=== PATIENT | male | born 1960 | race Caucasian/White ===

== ENCOUNTER 2016-04-13 06:30 | Inpatient (IN) | payer MEDICAID ==
[2016-04-13] MEDS ORDERED: ONDANSETRON 4 MG/2 ML VIAL IVP ONE (06:36)
[2016-04-13] MEDS ORDERED: NS 500 ML IV ONE (06:36)
--- NOTE | 2016-04-13 06:36 | EDPHY ---
H & P Source: Patient, EMS HPI/ROS: HPI CHIEF COMPLAINT: Chest pain/chest pressure HISTORY OF PRESENT ILLNESS: this patient very pleasant 55-year-old male significant past medical history for hypertension, and coronary artery bypass graft, tells me that he had bypass in 2011 3 vessel, he states that around 11: 00 p.m. he developed left-sided chest pressure like something sitting on his chest, states that this occurred all night long he was unable to get any relief he states it was not positional. Denies associated nausea vomiting diaphoresis or shortness of breath with this. He tells me the pain persisted all night long. Nonradiating. He decided to call 911 as the [facility] Upon arrival to the emergency room he did receive 325 mg of aspirin by EMS however no nitroglycerin. Patient tells me does have a heart history with coronary artery bypass however does not take any medications and states that he does not take any daily medications at all for his heart over the past few years. Denies taking daily aspirin, does not take any hypertension medication or cholesterol medication he does tell me that he takes Neurontin intermittently.Patient denies sharp stabbing pain or pleuritic pain or shortness of breath. Denies hemoptysis. Currently he tells me the pain is 6 out of 10 left-sided pressure-like. Patient tells me just moved [facility] 3 months ago, has not had a cardiac evaluation since his bypass surgery in 2011. Past Medical History:Hypertension, coronary artery disease Past Surgical History: CABG, hernia repair Social History: Daily use of tobacco, denies alcohol, daily use of marijuana, homeless Family History: noncontributory ROS REVIEW OF SYSTEMS: A comprehensive 10 point review of systems is otherwise negative aside from elements mentioned in the history of present illness. Exam Constitutional no acute distress, triage nursing summary reviewed, vital signs reviewed, awake/alert. Eyes normal conjunctivae and sclera, EOMI, PERRLA. HENT normal inspection, atraumatic, moist mucus membranes, no epistaxis, neck supple/ no meningismus, no raccoon eyes. Respiratory clear to auscultation bilaterally, normal breath sounds, no respiratory distress, no wheezing. Cardiovascular chest wall midline vertical incision consistent with previous bypass surgery, rate normal, regular rhythm, no murmur, no edema, distal pulses normal. Gastrointestinal soft, non-tender, no rebound, no guarding, normal bowel sounds, no distension, no pulsatile mass. Genitourinary no CVA tenderness. Musculoskeletal no midline vertebral tenderness, full range of motion, no calf swelling, no tenderness of extremities, no meningismus, good pulses, neurovascularly intact. Skin pink, warm, & dry, no rash, skin atraumatic. Neurologic awake, alert and oriented x 3, AAOx3, moves all 4 extremities equally, motor intact, sensory intact, CN II-XII intact, normal cerebellar, normal vision, normal speech. Psychiatric normal mood/affect. Heme/Lymph/Immune no lymphadenopathy. Differential diagnosis includes but is not limited to: ACS, atypical chest pain , pneumothorax, pneumonia, pulmonary embolism, aortic dissection, congestive heart failure, tumor, musculoskeletal pain, esophageal pain, GERD, peptic ulcer disease, pancreatitis Medical Decision Making: This patient will have an IV established be placed on full parking patroller, patient already receive full-dose aspirin I have ordered him nitroglycerin to see if this improves his 6/10 left-sided chest pressure. Patient will have an EKG, blood work including cardiac marker, electrolytes, CBC. Patient will be gently hydrated with IV fluids. He will have a chest x- ray. Most likely this patient will need to be admitted for ACS rule out given his history. Re-evaluation: 0640: EKG has been performed. Patient is on full parking patroller. Patient is receiving nitroglycerin at this time. EKG interpretation by me on record in [employer] system. Impression time of EKG 6:33 a.m., this is sinus rhythm rate of 73 there are atrial premature complexes present, there is evidence of an inferior infarct that is old with Q- waves in lead 2, 3, AVF, it is noted in his precordial specifically V4 V5 V6 is flattening of the T-wave. Otherwise unremarkable do not appreciate ST elevation or significant ST depression or significant T-wave abnormality. No old EKG to compare this to. 0649: patient was given 4 mg IV morphine, 4 mg IV Zofran, nitroglycerin. His pain was 6/10 and now 0/10. He is resting comfortably. Blood pressure was noted to be 170 systolic upon arrival it is currently now 120s systolic. ED x-ray chest one view: Scarring versus early pneumonia or right midlung, otherwise unremarkable, no cardiomegaly. Signed over at 7am shift change to Dr. Umanzor Critical Care: Total Critical Care Time Spent Managing this Patient: This 60 minutes Minutes. This time was spent Exclusively with this patient. This Care was exclusive of procedures. The Organ System/life at risk was cardiac This Patient was in Critical Condition because non STEMI (Elijah Chong) Constitutional: Initial Vital Signs Temperature (C) 36.4 C 04/13/16 06:33 Heart Rate 76 04/13/16 06:33 Respiratory Rate 18 04/13/16 06:33 Blood Pressure 175/111 H 04/13/16 06:33 O2 Sat (%) 96 04/13/16 06:33 O2 Delivery Mode Nasal Cannula O2 (L/minute) 2 Allergies/Adverse Reactions: No Known Allergies Allergy (Unverified 04/13/16 06:39) Home Medications: Medication Instructions Recorded Baclofen [Baclofen 20 mg (*)] 20 mg PO QID 04/13/16 Gabapentin [Neurontin] 600 mg PO QID 04/13/16 Aspirin EC [Aspirin EC 325 mg (*)] 325 mg PO DAILY #60 tab 04/14/16 Atorvastatin Calcium [Lipitor 20 20 mg PO DAILY #30 tab 04/14/16 mg (*)] Clopidogrel Bisulfate [Plavix (*)] 75 mg PO DAILY #30 tab 04/14/16 Lisinopril [Zestril 10 mg (*)] 10 mg PO DAILY #90 tab 04/14/16 Metoprolol Succinate Xr [Toprol Xl 25 mg PO DAILY #90 tab 04/14/16 25 mg (*)] Nicotine [Nicoderm Cq 21 mg (*)] 21 mg TD DAILY #7 patch 04/14/16 Nitroglycerin [Nitrostat 0.4 mg 0.4 mg SL ONCE PRN #30 btl 04/14/16 (*)] traMADol [Ultram 50 mg (*)] 50 mg PO Q6HRS PRN #30 tab 04/14/16 Medical Decision Making Other Provider: 0700: I assumed care of this patient from Dr. Chong at shift change. Patient's troponin markedly elevated at 6.430. 0743: Consulted with cardiology. Dr. Jose Antonio Leonard will see the patient in the hospital. Course was discussed with the hospitalist service, Dr. Chávez. Patient will be admitted to the PCU. On re-evaluation at 7:45 a.m.: The patient reports to me that his pain is currently 3/10. He tells me he has been having intermittent episodes of this pain for weeks. Patient received nitroglycerin sublingually. Nitro drip was started. Patient's chest x-ray is concerning for infiltrate versus scarring in the right middle lobe. Lateral chest x-ray was ordered to further evaluate. I will discuss with radiology. 0816: Consulted with Dr. Leonard, cardiology, concerning the patient's persistent pain. Patient was taken to the clinical lab technologist by Dr. Jose Antonio Leonard. ( Madelyn Umanzor) - Data Points Laboratory Results: Laboratory Results 04/13/16 06:32 04/13/16 06:32 Medications Given: Discontinued Medications Aspirin Buffered (Aspirin Ec) 325 mg PO DAILY [facility] Stop: 10/11/16 08:59 Last Admin: 04/14/16 09:05 Dose: 325 mg Atorvastatin Calcium (Lipitor) 20 mg PO DAILY [facility] Stop: 10/11/16 08:59 Last Admin: 04/14/16 09:05 Dose: 20 mg Baclofen (Baclofen) 20 mg PO QID [facility] Stop: 10/10/16 11:59 Last Admin: 04/14/16 06:26 Dose: 20 mg Clopidogrel Bisulfate (Plavix) 600 mg PO ONCE ONE Stop: 04/13/16 10:09 Last Admin: 04/13/16 11:09 Dose: Not Given Clopidogrel Bisulfate (Plavix) 75 mg PO DAILY [facility] Stop: 10/11/16 08:59 Last Admin: 04/14/16 09:05 Dose: 75 mg Famotidine (Pepcid) 20 mg PO BID [facility] Stop: 10/10/16 20:59 Last Admin: 04/14/16 09:04 Dose: 20 mg Gabapentin (Neurontin) 600 mg PO QID [facility] Stop: 10/10/16 11:59 Last Admin: 04/14/16 06:26 Dose: 600 mg Sodium Chloride (Ns) 500 mls @ 0 mls/hr IV ONCE ONE PRN Reason: As Directed Stop: 04/13/16 06:37 Last Admin: 04/13/16 06:45 Dose: 500 mls Nitroglycerin/Dextrose (Nitroglycerin 200 Mcg/Ml (Premix)) 250 mls @ 0 mls/hr IV EDNOW ONE; Titrate PRN Reason: Protocol Stop: 04/13/16 07:57 Last Admin: 04/13/16 08:17 Dose: 250 mls Lisinopril (Zestril) 2.5 mg PO DAILY [facility] Stop: 10/11/16 08:59 Last Admin: 04/14/16 09:04 Dose: 2.5 mg Lisinopril (Zestril) 2.5 mg PO ONCE ONE Stop: 04/13/16 14:01 Last Admin: 04/13/16 14:39 Dose: 2.5 mg Lisinopril (Zestril) 10 mg PO DAILY [facility] Stop: 10/11/16 09:59 Last Admin: 04/14/16 10:02 Dose: 10 mg Lorazepam (Ativan Injection) 1 mg IVP Q1HR PRN PRN Reason: Anxiety, Unable to Take PO Stop: 10/10/16 10:07 Last Admin: 04/13/16 17:14 Dose: 1 mg Metoprolol Succinate (Toprol Xl) 25 mg PO DAILY [facility] Stop: 10/10/16 10:29 Last Admin: 04/14/16 09:04 Dose: 25 mg Morphine Sulfate (Morphine) 4 mg IVP EDNOW ONE Stop: 04/13/16 06:37 Last Admin: 04/13/16 06:45 Dose: 4 mg Nicotine (Nicoderm Cq) 21 mg TD DAILY [facility] Stop: 10/10/16 10:29 Last Admin: 04/14/16 09:05 Dose: 21 mg Nitroglycerin (Nitrostat) 0.4 mg SL Q5M PRN PRN Reason: Chest Pain Stop: 04/13/16 06:47 Last Admin: 04/13/16 08:00 Dose: 0.4 mg Nitroglycerin (Nitrostat) 0.4 mg SL ONCE ONE Stop: 04/13/16 07:57 Last Admin: 04/13/16 08:01 Dose: 0.4 mg Ondansetron HCl (Zofran) 4 mg IVP EDNOW ONE Stop: 04/13/16 06:37 Last Admin: 04/13/16 06:45 Dose: 4 mg Oxycodone/Acetaminophen (Percocet 5/325) 1 - 2 tab PO Q4HRS PRN PRN Reason: Pain, Severe Able to Take PO Stop: 04/23/16 10:07 Last Admin: 04/14/16 09:04 Dose: 1 tab Pneumococcal Polyvalent Vaccine (Pneumovax 23) 0.5 ml IM .ONCE ONE Stop: 04/14/16 06:42 Last Admin: 04/14/16 06:53 Dose: 0.5 ml Tramadol HCl (Ultram) 50 mg PO Q6HRS PRN PRN Reason: Pain, Moderate Able to Take PO Stop: 10/10/16 10:43 Last Admin: 04/13/16 12:00 Dose: 50 mg Departure - Departure Disposition: To OP Cath/Surgery Clinical Impression: Elevated troponin Chest pain Qualifiers: Chest pain type: unspecified Qualifier Code: (R07.9) Chest pain, unspecified Condition: Serious
--- NOTE | 2016-04-13 06:43 | CPEKG ---
Heart Rate: 73 RR Interval: 822 P-R Interval: 132 QRSD Interval: 106 QT Interval: 420 QTC Interval: 463 P [place]: 36 QRS [place]: 17 T Wave [place]: 74 EKG Severity - ABNORMAL ECG - EKG Impression: SINUS RHYTHM EKG Impression: MULTIPLE ATRIAL PREMATURE COMPLEXES EKG Impression: INFERIOR INFARCT, OLD Electronically Signed By: Madelyn Umanzor 13-Apr-2016 18:13:12
[2016-04-13 06:44] LABS: % IMMATURE GRANULYOCYTES 0.5 % (0.0-1.1); ABSOLUTE IMMATURE GRANULOCYTES 0.07 10^3/uL (0.00-0.10); ADD DIFF? NO; ADD MORPH? NO; ADD SCAN? NO; ATYPICAL LYMPHOCYTE FLAG 30 (0-99); FRAGMENT RBC FLAG 0 (0-99); HEMATOCRIT 45.2 % (40.0-51.0); HEMOGLOBIN 15.5 g/dL (13.7-17.5); LEFT SHIFT FLG 0 (0-99); LIPEMIA HEMOLYSIS FLAG 90 (0-99); MEAN CELL HEMOGLOBIN 29.6 pg (27.9-34.1); MEAN CELL HEMOGLOBIN CONCENTR. 34.3 g/dL (32.4-36.7); MEAN CELL VOLUME 86.3 fL (81.5-99.8); PLATELET CLUMPS FLAG 0 (0-99); PLATELET COUNT 240 10^3/uL (150-400); RED BLOOD CELL COUNT 5.24 10^6/uL (4.40-6.38); RED CELL DISTRIBUTION WIDTH 14.4 % (11.5-15.2)
[2016-04-13] MEDS: NITROGLYCERIN 0.4 MG BTL SL PRN ×2 (06:45→08:00)
[2016-04-13 06:55] LABS: APTT 29.8 SEC (23.0-38.0); INR 1.15 (0.83-1.16); PROTIME(PATIENT) 14.6 SEC (12.0-15.0)
[2016-04-13 07:10] LABS: ALANINE AMINOTRANSFERASE 34 IU/L (21-72); ALKALINE PHOSPHATASE 95 IU/L (38-126); ANION GAP 14 mEq/L (8-16); ASPARTATE AMINOTRANSFERASE 91 IU/L (17-59); BILIRUBIN,TOTAL 0.8 mg/dL (0.1-1.4); BILIRUBIN-CONJUGATED 0.4 mg/dL (0.0-0.5); BILIRUBIN-UNCONJUGATED 0.4 mg/dL (0.0-1.1); CALCIUM 9.6 mg/dL (8.5-10.4); CARBON DIOXIDE 25 mEq/l (22-31); CHLORIDE 104 mEq/L (97-110); CREATININE 0.5 mg/dL (0.7-1.3); GLOMERULAR FILTRATION RATE > 60; GLUCOSE 133 mg/dL (70-100); SODIUM 143 mEq/L (134-144); TOTAL PROTEIN 7.6 g/dL (6.3-8.2)
[2016-04-13 07:22] LABS: CK-MB INTERPRETATION POSITIVE (NEGATIVE)
[2016-04-13] MEDS ORDERED: NITROGLYCERIN 0.4 MG BTL SL ONE ×2 (07:56)
[2016-04-13] MEDS ORDERED: NITROGLYCERIN/DEXTROSE 250 ML IV ONE (07:56)
[2016-04-13] MEDS ORDERED: LIDOCAINE 1% 30 ML SDV ONE (08:50)
[2016-04-13] MEDS ORDERED: MIDAZOLAM 2 MG/2 ML VIAL ONE ×3 (08:51→09:44)
[2016-04-13] MEDS ORDERED: fentaNYL 100 MCG/2 ML INJ ONE (08:51)
[2016-04-13] MEDS ORDERED: IOPAMIDOL (ISOVUE 370) 100 ML BTL IV ONE ×2 (08:51→09:39)
--- NOTE | 2016-04-13 08:57 | DX ---
Chest, One View Lateral April 13, 2016 at 0745 Hours History: Dyspnea, chest pain. Findings: Lateral view of the chest demonstrates alveolar opacity in the anterior segment of the righ t upper lobe consistent with pneumonia. Slight hyperinflation of the lungs. Median sternotomy wires a nd mediastinal clips. Impression: Right upper lobe anterior segment pneumonia.
--- NOTE | 2016-04-13 08:58 | DX ---
Portable Chest April 13, 2016 at 0648 Hours History: Chest pain. Findings: Alveolar opacity in the right upper lobe anterior segment likely representing pneumonia. In creased interstitial markings in both lungs. Mild cardiomegaly. Median sternotomy wires. Impressions: 1. Right upper lobe pneumonia. 2. Recommend follow-up until clear.
[2016-04-13] MEDS ORDERED: NITROGLYCERIN 1,500 MCG/15 ML VIAL MISC ONE (09:39)
[2016-04-13] MEDS ORDERED: HEPARIN 10,000 UNIT/10 ML MDV ONE (09:41)
[2016-04-13] MEDS ORDERED: BIVALIRUDIN 250 MG/5 ML VIAL IV ONE (09:41)
[2016-04-13] MEDS ORDERED: CLOPIDOGREL BISULFATE 75 MG TAB ONE (10:05)
[2016-04-13] MEDS ORDERED: HYDROCODONE/APAP 5/325 TAB PO PRN (10:08)
[2016-04-13] MEDS ORDERED: TEMAZEPAM 15 MG CAP PO PRN (10:08)
[2016-04-13] MEDS ORDERED: ONDANSETRON 4 MG/2 ML VIAL IVP PRN (10:08)
[2016-04-13] MEDS ORDERED: CLOPIDOGREL BISULFATE 75 MG TAB PO ONE (10:08)
[2016-04-13] MEDS ORDERED: NITROGLYCERIN 0.4 MG BTL SL PRN (10:08)
[2016-04-13] MEDS ORDERED: ATROPINE SULFATE 1 MG/10 ML SYR IVP PRN (10:08)
[2016-04-13] MEDS ORDERED: NS 1,000 ML IV SCH (10:15)
--- NOTE | 2016-04-13 10:22 | GHP ---
[f rep st] HISTORY AND PHYSICAL DATE OF ADMISSION: 04/13/2016 The patient is a 55-year-old male admitted to the hospital with a non-Q-wave myocardial infarction. CHIEF COMPLAINT: Chest pain. HISTORY OF PRESENT ILLNESS: The patient is 55 years old. He has known severe coronary artery diseas e. He underwent coronary artery bypass grafting in 2011. At around 11 o'clock last night he awoke w ith substernal chest pressure as a band around his chest. It was associated with intense diaphoresis and shortness of breath. Pain persisted. He arrived in the emergency department at 6:30 this morni ng. His initial EKG did not show acute changes. His troponin came back at 6, and I was called to co nsider him for diagnostic angiogram. Despite medical therapy, he had ongoing 6/10 discomfort and on my exam was having 3/10 pain. This has been going on since 11 o'clock in the morning. It is a subst ernal pressure. It has been constant. It does not radiate to the arm or jaw. It is associated with shortness of breath, nausea, vomiting, diaphoresis. REVIEW OF SYSTEMS: Negative for weight loss, weight gain. He is homeless, [facility] His eye review of systems is negative for change in vision. Review of systems for ENT revea led no sore throat. He has a history of tonsillectomy. Cardiovascular review of systems is negative for PND, orthopnea, syncope and near syncope. Review of systems for respiratory include chronic cou gh with decreased exercise tolerance with shortness of breath. Review of systems for GI is positive for mild nausea but no vomiting. No diarrhea or constipation. Review of systems for is negative for dysuria or hematuria. Review of systems for musculoskeletal is positive for chronic back pain se condary to an injury. He takes tramadol and baclofen for this. Review of systems for skin is negati ve for rash. Review of systems for neuro is negative for focal muscle weakness, focal numbness or ti ngling. Review of systems for endocrinology is negative for history of diabetes. Review of systems for immunologic is negative for adenopathy. Review of systems for psychiatry is positive for chronic marijuana use. No alcohol. ALLERGIES: Review of systems for allergies, none. PAST SURGICAL HISTORY: Significant for his coronary artery bypass grafting as described above, 4-ves nenita. He has a history of tonsillectomy. PAST MEDICAL HISTORY: Significant for longstanding COPD related to tobacco abuse. CARDIAC RISK FACTORS: Negative for diabetes, negative for hypertension. He has positive hyperlipid emia, positive smoking. Negative family history. FAMILY HISTORY: Negative for premature coronary disease. SOCIAL HISTORY: Again, no alcohol. Positive marijuana daily. He is homeless. He is accompanied by his family. PHYSICAL EXAMINATION: GENERAL: This is a disheveled male sitting comfortably in bed. VITAL SIGNS: Initial vital signs revealed a blood pressure of 134/68. His current heart rate is 64, respiratory r ate is 21 and unlabored. Oxygen saturation was 96% on 2 L. EYES: Examination revealed conjunctival injection without icterus. His pupils were equal. ENT: Revealed no significant exudate within the oropharynx. His dentition is poor. NECK: Examination revealed no thyromegaly. There were no mass es. RESPIRATORY: Auscultation reveals mild decreased breath sounds with normal effort. There were coarse rhonchi that cleared with coughing. He is hyperexpanded. CARDIOVASCULAR: Examination a regu lar rate with extra systoles. His PMI is located mid clavicular line, 5th intercostal space. His st ernotomy is well healed. He had no peripheral edema. Carotids were +2 and brisk. Femoral arteries were +2 and brisk. Pedal pulses were +1. GI: His abdomen is distended. He is tympanitic to percus maria c. There was no tenderness to palpation. There was no rebound, no guarding. There was no hepato megaly. : Exam was deferred. LYMPH: There was no supraclavicular or axillary adenopathy. MUSCU LOSKELETAL: Palpation revealed grossly normal muscle tone with symmetry. There was gross normal fun ction. SKIN: Examination revealed no significant rash. NEUROLOGIC: He is alert and oriented with normal mood and affect. The patient is moving extremities equally. No decrease in sensation bilater ally. PROBLEM LIST: 1. Acute chest pain syndrome characterized by abnormal troponin. 2. Known coronary artery disease with coronary artery bypass grafting. 3. Tobacco abuse. 4. Chronic marijuana use. 5. COPD. LABORATORY DATA: The patient's serum sodium is 143 with a potassium of 4. His chloride is 104 with a bicarbonate of 25. BUN is 8 with a creatinine of 0.5. His AST is elevated at 91. His CPK is 638 with a positive MB fraction. Troponin is 6.43. His BNP is elevated at 1390. His albumin is 4. His lipase is 23. His INR is 1.15. Testing available includes an EKG from 6:36 this morning. EKG reveals sinus rhythm at 73, PACs, infe rior Q-waves are noted. No acute ST-T changes are noted. Chest x-ray from 7:49 reveals sternal wires consistent with prior bypass grafting. He has hyperexpan maria c. There is prominence of the pulmonary artery with a focal infiltrate in the right middle lobe. The aorta is tortuous. FINAL DIAGNOSIS: Acute non-Q-wave myocardial infarction characterized by ongoing substernal pain, el evation of CPK and troponin consistent with injury. EKG does not suggest focal location without ST-T changes. However, the patient is clearly at high risk with known coronary artery bypass grafting. RECOMMENDATIONS: 1. Urgent angiography with an eye towards intervention. The patient is currently on no cardiac medi cines for risk reduction, in particular no antiplatelet agents, no statins, no beta ruslan, no GAMAL i nhibitor. This is due to his social situation of being homeless. Interestingly, he is able to affor d his Flexeril and tramadol for chronic pain. 2. Other problems to be addressed this hospitalization, include a focal infiltrate on chest x-ray. Whether this represents pneumonia versus a malignancy is uncertain. Considerations for CT scanning t o further define this post intervention. 3. Tobacco abuse. 4. Overall cardiovascular risk. The patient's risk is intermediate to high. Will await results of angiography. Risks and benefits of this approach were discussed with the patient. He is well aware, having had this done previously. This was discussed with his family. /[id number]/MODL
--- NOTE | 2016-04-13 10:23 | PDDXCAT ---
Diagnostic Cath Note - . Date: 04/13/16 Full Stack Developer: Horacio Indication: CCC Class III and IV angina on medical treatment, other (NONQ MA) - Procedure Access: right groin Procedure: left heart catheterization, coronary angiography, left ventriculogram , vein graft injection, DUMONT injection, other (Aortagram) - Materials Left Heart Cath size: 6F Left Heart Cath materials: standard multipack (JL4, JR4, pigtail) - Findings-Left Heart Catheterization LM: Unobstructed LAD: 100% occluded after septal perforated LCX: 1st obtuse margin branch widely patent. Occlusion with thrombus 2nd obtuse marginal branch likely culprit vessel RCA: diffusely diseased with occlusion at the posterolateral branch rSVG: widely patent to the distal posterolateral branch DUMONT: widely patent to the LAD EDP: 10 mm of mercury LVEF: 40% with inferoapical akinesis Complications: none Estimated blood loss: <50ml Closure method: Angioseal Assessment: Non-Q-wave myocardial infarction with occlusion of the obtuse marginal branch. Severe multivessel coronary artery disease with patent mammary artery to the LAD, patent vein graft to the distal posterolateral branch. Moderate reduction in LV systolic function with inferior apical akinesis and normal filling pressures Plan: PCI Intervention: after reviewing diagnostic angiograms it was elected to proceed with emergency PCI. Patient was anticoagulated with heparin. Therapeutic ACT was confirmed. Using a 6 English JL4 guiding catheter left main coronary was selectively intubated. Using a 0.014 luge wire the obtuse marginal stenosis was crossed in the wire placed in the distal vessel. Pre dilatation of the occlusion was performed using a 2 mm balloon x3. Was elected to proceed with stenting. In light of the patient's transient status inability dip purchase medications of his lytes proceed with bare metal stenting. 2.25 x 20 mm bare metal stent was placed across the stenosis and deployed using a single inflation. Patient was administered intracoronary nitroglycerin. Final orthogonal angiogram revealed step-up step-down with DIALLO grade 3 flow. At this point left ventricular angiography was performed. Aortogram was performed revealing a single vein graft to the distal posterolateral branch. ACT was confirmed. Sheath was removed using Angio-Seal the patient is taken to the ICU for continued care. Final diagnosis: Non-Q-wave myocardial infarction with occlusion of the obtuse marginal branch. Reduced LV systolic function. Severe multivessel coronary artery disease. Ongoing tobacco abuse. Noncompliance with medications due to finances. Recommendations: Dual antiplatelet therapy for at least 2 weeks. Resume statin therapy Tyron inhibitor and low-dose beta-ruslan. Evaluation for lung mass. Smoking cessation with nicotine patch. Social work consultation. Patient Problems: Problems Problem Status Diagnosed Chest pain Acute Elevated troponin Acute Non-Q wave myocardial infarction Acute
[2016-04-13] MEDS ORDERED: traMADol 50 MG TAB PO PRN (10:44)
[2016-04-13] MEDS ORDERED: NON-FORMULARY NEW DRUG (Gabapentin [Neurontin] 600 MG) PO SCH (12:00)
[2016-04-13] MEDS: METOPROLOL SUCCINATE XR 25 MG TAB PO SCH (12:01)
[2016-04-13] MEDS: NICOTINE 21 MG/24 HR PATCH TD SCH (12:01)
[2016-04-13] MEDS: BACLOFEN 20 MG TAB PO SCH ×3 (13:20→20:33)
[2016-04-13] MEDS: GABAPENTIN 300 MG CAP PO SCH ×3 (13:20→20:33)
[2016-04-13] MEDS ORDERED: LISINOPRIL 2.5 MG TAB PO ONE (14:00)
[2016-04-13] MEDS: LORazepam 2 MG/ML INJ IVP PRN ×2 (14:37→17:14)
[2016-04-13 15:07] LABS: CHOLESTEROL 157 mg/dL (140-220); CHOLESTEROL/HDL RATIO 4.49 RATIO (1.00-4.97); HIGH DENSITY LIPOPROTEIN 35 mg/dL (40-65); LDL/HDL RATIO 2.71 RATIO (1.00-3.64); LOW DENSITY LIPOPROTEIN 95 mg/dL (80-100); NON-HIGH DENSITY LIPOPROTEIN 122 mg/dL (90-129); TRIGLYCERIDE 138 mg/dL (40-150); VERY LOW DENSITY LIPOPROTEINS 27 mg/dL (8-25)
[2016-04-13 15:28] LABS: CK-MB INTERPRETATION POSITIVE (NEGATIVE)
[2016-04-13 18:00] LABS: CK-MB INTERPRETATION POSITIVE (NEGATIVE)
[2016-04-13] MEDS: FAMOTIDINE 20 MG TAB PO SCH (20:33)
[2016-04-13 21:39] LABS: CK-MB INTERPRETATION POSITIVE (NEGATIVE)
[2016-04-14] MEDS: OXYCODONE/APAP 5/325 TAB PO PRN ×2 (03:17→09:04)
[2016-04-14 03:59] LABS: ALBUMIN 3.7 g/dL (3.5-5.0); ANION GAP 10 mEq/L (8-16); ASPARTATE AMINOTRANSFERASE 93 IU/L (17-59); BILIRUBIN,TOTAL 0.8 mg/dL (0.1-1.4); CALCIUM 9.1 mg/dL (8.5-10.4); CARBON DIOXIDE 27 mEq/l (22-31); CHLORIDE 105 mEq/L (97-110); CREATININE 0.5 mg/dL (0.7-1.3); GLOMERULAR FILTRATION RATE > 60; GLUCOSE 107 mg/dL (70-100); LACTATE DEHYDROGENASE 901 IU/L (313-618); POTASSIUM 4.1 mEq/L (3.5-5.2); SODIUM 142 mEq/L (134-144)
[2016-04-14 04:06] LABS: % IMMATURE GRANULYOCYTES 0.5 % (0.0-1.1); ABSOLUTE IMMATURE GRANULOCYTES 0.06 10^3/uL (0.00-0.10); ADD DIFF? NO; ADD MORPH? NO; ADD SCAN? NO; ATYPICAL LYMPHOCYTE FLAG 40 (0-99); FRAGMENT RBC FLAG 0 (0-99); HEMOGLOBIN 15.3 g/dL (13.7-17.5); LEFT SHIFT FLG 0 (0-99); LIPEMIA HEMOLYSIS FLAG 80 (0-99); MEAN CELL HEMOGLOBIN 29.4 pg (27.9-34.1); MEAN CELL HEMOGLOBIN CONCENTR. 33.3 g/dL (32.4-36.7); MEAN CELL VOLUME 88.5 fL (81.5-99.8); MEAN PLATELET VOLUME 10.5 fL (8.7-11.7); PLATELET CLUMPS FLAG 0 (0-99); PLATELET COUNT 207 10^3/uL (150-400); RED CELL DISTRIBUTION WIDTH 14.6 % (11.5-15.2)
[2016-04-14 04:23] LABS: CK-MB INTERPRETATION POSITIVE (NEGATIVE)
[2016-04-14] MEDS: GABAPENTIN 300 MG CAP PO SCH (06:26)
[2016-04-14] MEDS: BACLOFEN 20 MG TAB PO SCH (06:26)
[2016-04-14] MEDS ORDERED: PNEUMOCOCCAL 0.5ML VACCINE VIAL IM ONE (06:41)
--- NOTE | 2016-04-14 06:45 | CPEKG ---
Heart Rate: 62 RR Interval: 968 P-R Interval: 136 QRSD Interval: 108 QT Interval: 456 QTC Interval: 463 P [place]: 35 QRS [place]: 19 T Wave [place]: 95 EKG Severity - ABNORMAL ECG - EKG Impression: SINUS RHYTHM EKG Impression: INFERIOR INFARCT, OLD EKG Impression: LATERAL LEADS ARE ALSO INVOLVED Preliminary Awaiting MD Review
[2016-04-14] MEDS ORDERED: ATORVASTATIN CALCIUM 20 MG TAB PO SCH (09:00)
[2016-04-14] MEDS ORDERED: LISINOPRIL 2.5 MG TAB PO SCH (09:00)
[2016-04-14] MEDS ORDERED: ASPIRIN EC 325 MG TAB PO SCH (09:00)
[2016-04-14] MEDS ORDERED: CLOPIDOGREL BISULFATE 75 MG TAB PO SCH (09:00)
[2016-04-14] MEDS: METOPROLOL SUCCINATE XR 25 MG TAB PO SCH (09:04)
[2016-04-14] MEDS: FAMOTIDINE 20 MG TAB PO SCH (09:04)
[2016-04-14] MEDS: NICOTINE 21 MG/24 HR PATCH TD SCH (09:05)
[2016-04-14 09:06] VITALS: PULSE 79
[2016-04-14 09:16] VITALS: RESP 20; TEMP 97.7; O2SAT 97
[2016-04-14] MEDS ORDERED: LISINOPRIL 10 MG TAB PO SCH (10:00)
[2016-04-14 10:02] VITALS: BP 162/94
--- NOTE | 2016-04-14 10:08 | PDDCSUM ---
Discharge Summary Discharge Summary: Admit: 04/13/17 Discharge 04/14/16 Admission Dx: NONQMI Discharge DX: NONQMI, CAD, S/P CABG,S/P PCI, Hyperlipidemia,Hypertension, Tobacco abuse, COPD, Abnormal chest xray, chronic marijuana use Followup: [facility]. [address] chest for abnormal chest XRAY: Concern for malignancy Follow up [facility] s/p SC Follow up Cardiac rehabilitation. Meds: See form 17 Procedures: Cardiac cath with PCI of the circumflex/Om. Placement of bare-metal stent/ ( patent Wheeler to the LAD and patent SVG to the RCA.EF 40%) Echocardiogram. Hospital Course: Patient was admitted from the ER with 8 hours of substernal chest pain. ECG was inconclusive. Initial troponin was elevated and the patient was taken to the tutorial laboratory supervisor with on going pain. He was found to have a culprit thrombotic stenosis of the OM and underwent stenting with a bare metal stent. He was observed overnight. He had no evidence of heart failure.. EF is 40%. He was restless overnight. He was found to have an abnormal chest xray with consolidation of the right middle lobe. . He understands that this maybe a malignancy and will follow this up as outpatient. He was up this morning and wanting discharge. Telemetry has not revealed any arrhythmias. His exam is unremarkable. Metabolic assessment is stable. He is states an ability to comply with his medications. He has had smoking cessation discussed. He is discharged with a nicotine patch and Rx. 160/99 64 Chest decreased breath sounds but clear,\Cardiac regular without gallop puncture site healing well. CPKs decreasing. Stable H/H Discharge home with follow up
--- NOTE | 2016-04-14 10:45 | ECHO ---
[id number] + + [address] : : [place] [address] : : [phone] + + Adult Echocardiographic Report + ------+ :Name: RUBINA GHOSH Trellreshma Date: 04/14/2016 07:48 AM : : Hospital Admission Number: [id number] Locatio n: 254: :: 1960 Gender: Male Height: 75 in : :Age: 55 yrs Race: WH Weight: 218 lb : :Reason For Study: Follow up post NC : : BSA: 2.3 meters 2 : :History: Recent stent : + ------+ MMode/2D Measurements & Calculations LVIDd: 4.9 cmEDV(Teich): 114.5 ml LVLd ap4: 9.2 cm SV(MOD-sp4): 89.0 ml EDV(MOD-sp4): 143.0 ml LVLs ap4: 8.3 cm ESV(MOD-sp4): 54.0 ml EF(MOD-sp4): 62.2 % Normal Measurement Values: + + :LVIDd (3.5-5.7cm) IVSd (0.6-1.1cm) LVPWd (0.6-1.1cm) Aortic Root (2.0-3.7cm)Left Atrium (1.5-4.0cm): :LV Vol(d) (76-115ml) LV Vol(s) (29-48ml) Ejec Fraction (50-65%)PV Tomas (0.6- 1.2m/s) TV Tomas (0.4-1.0m/s) : :MV E Tomas (0.8-1.0m/s)MV A Tomas (0.3-1.0m/s)LVOT Tomas (0.7-1.2m/s) Asc Ao Tomas ( 0.9-1.8m/s) : + + Doppler Measurements & Calculations MV E max tomas: 77.5 cm/sec Ao V2 max: 135.7 cm/sec MV A max tomas: 59.7 cm/sec Ao max P.4 mmHg MV E/A: 1.3 Left Ventricle The left ventricle is normal in size and function. There is normal left ventricular wall thickness. Left ventricular systolic function is normal. There is Doppler evidence for diastolic dysfunction. Ejection Fraction = 65- 70%. No regional wall motion abnormalities noted. Right Ventricle The right ventricle is normal in size and function. Atria The left atrium is mildly dilated. Right atrial size is normal. The interatrial septum is intact with no evidence for an atrial septal defect. Mitral Valve The mitral valve is normal in structure and function. There is no evidence of mitral valve prolapse. There is no mitral valve stenosis. There is mild to moderate mitral regurgitation. Tricuspid Valve Normal tricuspid valve. There is trace tricuspid regurgitation. Aortic Valve The aortic valve opens well. There is no aortic stenosis. There is no aortic insufficiency. Pulmonic Valve The pulmonic valve is not well visualized. There is no pulmonic valvular regurgitation. Great Vessels The aortic root is normal size. Pericardium/Pleural There is no pericardial effusion. Conclusion A complete two-dimensional transthoracic echocardiogram was performed (2D, M-mode, Doppler and color flow Doppler). The left ventricle is normal in size and function. Left ventricular systolic function is normal. There is Doppler evidence for diastolic dysfunction. Ejection Fraction = 65-70%. The left atrium is mildly dilated. There is mild to moderate mitral regurgitation. There is trace tricuspid regurgitation. There is a infero-apical akinetic segment. Final Reading Physician: Sylvain Suarez signed on 04/14/2016 10:43 AM Ordering Physician: SHIRIN POSADA Performed By: Yamila Youngblood, MORA
== END 2016-04-14 10:30 | disposition home or self-care (01) | DRG 249 ==
LOC: F2N 10:36
PROVIDERS: ADMIT Internal Medicine; ATTEND Internal Medicine
PROC: 02703DZ Dilation of Coronary Artery, One Artery with Intraluminal Device, Percutaneous Approach (ICD-10-PCS; principal; 2016-04-13)
PROC: B2151ZZ Fluoroscopy of Left Heart using Low Osmolar Contrast (ICD-10-PCS; principal; 2016-04-13)
PROC: 4A023N7 Measurement of Cardiac Sampling and Pressure, Left Heart, Percutaneous Approach (ICD-10-PCS; principal; 2016-04-13)
PROC: B2111ZZ Fluoroscopy of Multiple Coronary Arteries using Low Osmolar Contrast (ICD-10-PCS; principal; 2016-04-13)
DX: I21.4 Non-ST elevation (NSTEMI) myocardial infarction (principal); I25.10 Atherosclerotic heart disease of native coronary artery without angina pectoris; Z95.1 Presence of aortocoronary bypass graft; E78.5 Hyperlipidemia, unspecified; I10 Essential (primary) hypertension; F17.210 Nicotine dependence, cigarettes, uncomplicated; J44.9 Chronic obstructive pulmonary disease, unspecified; R91.8 Other nonspecific abnormal finding of lung field; F12.90 Cannabis use, unspecified, uncomplicated; Z59.0 Homelessness; Z23 Encounter for immunization
CPT/HCPCS: 96365; 96366; C1725; C1769; C1876; C1887; G0009; G0477; J0583; J1644; J2250; J2405; J3010; Q9967

== ENCOUNTER 2016-04-28 12:26 | Observation (INO) | payer MEDICAID ==
--- NOTE | 2016-04-28 12:34 | EDPHY ---
H & P Time Seen by Provider: 04/28/16 12:30 HPI/ROS: CHIEF COMPLAINT: chest pain HISTORY OF PRESENT ILLNESS: Patient is a 55-year-old male with a history of coronary artery disease and recent cardiac stenting on 04/14/[address] Jose Antonio Leonard. Patient presents emergency department with 30 minutes of left-sided chest pain. This is just like the pain before. Patient states it is moderate and worsening. It radiates into his left arm. EMS treated the patient with nitroglycerin wound an aspirin which did not improve his symptoms. He reports mild shortness of breath. He has mild nausea with no vomiting. No abdominal pain. No recent fevers or chills. No cough. Patient has been taking his medications regularly but does not know which medications he is taking. REVIEW OF SYSTEMS: My complete review of systems is negative except as mentioned in the HPI. Past Medical/Surgical History: Includes coronary artery disease, hyperlipidemia, hypertension, COPD Past surgical history: Includes a CABG, PCI Social history: The patient smokes tobacco. Patient uses marijuana. He does not drink alcohol. Smoking Status: Current every day smoker Physical Exam: Vitals noted GENERAL: No acute distress, alert. HEENT: Eyes normal to inspection, normal pharynx, no signs of dehydration. Poor dentition. NECK: No thyromegaly, no lymphadenopathy, supple. RESPIRATORY: Clear to auscultation bilaterally, no rales, rhonchi or wheezing. CVS: Regular rate and rhythm, no rubs, murmurs, or gallops. Patient has a midline surgical scar ABDOMEN: Soft, nontender, nondistended, no organomegaly. BACK: Normal to inspection, no CVA tenderness. SKIN: Normal color, no rash, warm, dry. No pallor. EXTREMITIES: No pedal edema, no calf tenderness, no Homans sign or cords, no joint swelling. NEURO/PSYCH: Alert and oriented x3, normal mood and affect, normal motor sensory exam. Constitutional: Initial Vital Signs Temperature (C) 36.5 C 04/28/16 12:36 Heart Rate 64 04/28/16 12:36 Respiratory Rate 23 H 04/28/16 12:36 Blood Pressure 101/77 04/28/16 12:36 O2 Sat (%) 98 04/28/16 12:36 O2 Delivery Mode Room Air O2 (L/minute) 2 Allergies/Adverse Reactions: No Known Allergies Allergy (Verified 04/28/16 12:35) Home Medications: Medication Instructions Recorded Baclofen [Baclofen 20 mg (*)] 20 mg PO QID 04/13/16 Gabapentin [Neurontin] 600 mg PO QID 04/13/16 Aspirin EC [Aspirin EC 325 mg (*)] 325 mg PO DAILY #60 tab 04/14/16 Atorvastatin Calcium [Lipitor 20 20 mg PO DAILY #30 tab 04/14/16 mg (*)] Clopidogrel Bisulfate [Plavix (*)] 75 mg PO DAILY #30 tab 04/14/16 Lisinopril [Zestril 10 mg (*)] 10 mg PO DAILY #90 tab 04/14/16 Metoprolol Succinate Xr [Toprol Xl 25 mg PO DAILY #90 tab 04/14/16 25 mg (*)] Nicotine [Nicoderm Cq 21 mg (*)] 21 mg TD DAILY #7 patch 04/14/16 Nitroglycerin [Nitrostat 0.4 mg 0.4 mg SL ONCE PRN #30 btl 04/14/16 (*)] traMADol [Ultram 50 mg (*)] 50 mg PO Q6HRS PRN #30 tab 04/14/16 Medical Decision Making ED Course/Re-evaluation: In the emergency department I met EMS on arrival. I took report from the comber operator. I discussed the plan with the patient. I answered all his questions. Laboratory studies, EKG and chest x-ray were ordered. Of note, EMS gave the patient nitroglycerin and aspirin. IV the patient's medical record from his admission on 04/13/2016. I also reviewed the note from Dr. Jose Antonio Leonard from his stent placement. EKG shows normal sinus rhythm, normal rate, normal axis, nonspecific interventricular conduction delay. Patient has Q-waves in 2, 3 and AVF. There are no ST or T-wave abnormalities. VPC present. Patient was given Zofran for nausea. 1325: I discussed the case with the hospitalist service. Based on the patient' s history and previous cardiac stent the patient will be admitted for further observation. Patient's initial troponin was negative. However, this is a 30- 40 minute troponin. His initial EKG did not show ST elevation CA. Differential Diagnosis: My differential includes but is not limited to ACS, acute CA, pulmonary embolus , aortic aneurysm, dissection, pericarditis, myocarditis - Data Points Laboratory Results: Laboratory Results 04/28/16 12:00 04/28/16 12:00 04/28/16 12:00 WBC 10.39 H 10^3/uL (3.80-9.50) RBC 5.16 10^6/uL (4.40-6.38) Hgb 15.3 g/dL (13.7-17.5) Hct 45.3 % (40.0-51.0) MCV 87.8 fL (81.5-99.8) MCH 29.7 pg (27.9-34.1) MCHC 33.8 g/dL (32.4-36.7) RDW 14.9 % (11.5-15.2) Plt Count 225 10^3/uL (150-400) MPV 11.2 fL (8.7-11.7) Neut % (Auto) 61.9 % (39.3-74.2) Lymph % (Auto) 29.4 % (15.0-45.0) [place] % (Auto) 6.0 % (4.5-13.0) Eos % (Auto) 1.6 % (0.6-7.6) Baso % (Auto) 0.6 % (0.3-1.7) Nucleat RBC Rel Count 0.0 % (0.0-0.2) Absolute Neuts (auto) 6.44 10^3/uL (1.70-6.50) Absolute Lymphs (auto) 3.05 H 10^3/uL (1.00-3.00) Absolute Monos (auto) 0.62 10^3/uL (0.30-0.80) Absolute Eos (auto) 0.17 10^3/uL (0.03-0.40) Absolute Basos (auto) 0.06 10^3/uL (0.02-0.10) Absolute Nucleated RBC 0.00 10^3/uL (0-0.01) Immature Gran % 0.5 % (0.0-1.1) Immature Gran # 0.05 10^3/uL (0.00-0.10) PT 13.3 SEC (12.0-15.0) INR 1.02 (0.83-1.16) APTT 26.7 SEC (23.0-38.0) Sodium 143 mEq/L (134-144) Potassium 4.4 mEq/L (3.5-5.2) Chloride 104 mEq/L (97-110) Carbon Dioxide 24 mEq/l (22-31) Anion Gap 15 mEq/L (8-16) BUN 12 mg/dL (7-23) Creatinine 0.6 L mg/dL (0.7-1.3) Estimated GFR > 60 Glucose 131 H mg/dL (70-100) Calcium 10.0 mg/dL (8.5-10.4) Troponin I 0.012 ng/mL (0-0.034) NT-Pro-B Natriuret Pep 609 H pg/mL (0-125) Medications Given: Discontinued Medications Morphine Sulfate (Morphine) 4 mg IVP EDNOW ONE Stop: 04/28/16 12:36 Last Admin: 04/28/16 13:11 Dose: 4 mg Ondansetron HCl (Zofran) 4 mg IVP EDNOW ONE Stop: 04/28/16 12:36 Last Admin: 04/28/16 13:12 Dose: 4 mg Departure - Departure Disposition: [facility] Inpatient Acute Clinical Impression: Chest pain Qualifiers: Chest pain type: precordial chest pain Qualifier Code: (R07.2) Precordial pain Condition: Good Referrals: NONE *PRIMARY CARE P,. [Primary Care Provider] - As per Instructions
[2016-04-28] MEDS ORDERED: ONDANSETRON 4 MG/2 ML VIAL IVP ONE (12:35)
--- NOTE | 2016-04-28 12:36 | CPEKG ---
Heart Rate: 64 RR Interval: 938 P-R Interval: 128 QRSD Interval: 114 QT Interval: 456 QTC Interval: 471 P [place]: 37 QRS [place]: 20 T Wave [place]: 96 EKG Severity - ABNORMAL ECG - EKG Impression: SINUS RHYTHM EKG Impression: VENTRICULAR PREMATURE COMPLEX EKG Impression: NONSPECIFIC INTRAVENTRICULAR CONDUCTION DELAY EKG Impression: INFERIOR INFARCT, OLD Electronically Signed By: Eulalia Colin 28-Apr-2016 15:11:20
[2016-04-28 12:41] LABS: % IMMATURE GRANULYOCYTES 0.5 % (0.0-1.1); ABSOLUTE IMMATURE GRANULOCYTES 0.05 10^3/uL (0.00-0.10); ADD DIFF? NO; ADD MORPH? NO; ADD SCAN? NO; ATYPICAL LYMPHOCYTE FLAG 70 (0-99); FRAGMENT RBC FLAG 0 (0-99); HEMATOCRIT 45.3 % (40.0-51.0); HEMOGLOBIN 15.3 g/dL (13.7-17.5); LEFT SHIFT FLG 0 (0-99); LIPEMIA HEMOLYSIS FLAG 90 (0-99); MEAN CELL HEMOGLOBIN 29.7 pg (27.9-34.1); MEAN CELL HEMOGLOBIN CONCENTR. 33.8 g/dL (32.4-36.7); MEAN CELL VOLUME 87.8 fL (81.5-99.8); MEAN PLATELET VOLUME 11.2 fL (8.7-11.7); PLATELET CLUMPS FLAG 0 (0-99); PLATELET COUNT 225 10^3/uL (150-400); RED BLOOD CELL COUNT 5.16 10^6/uL (4.40-6.38); RED CELL DISTRIBUTION WIDTH 14.9 % (11.5-15.2)
[2016-04-28 12:49] LABS: ANION GAP 15 mEq/L (8-16); CARBON DIOXIDE 24 mEq/l (22-31); CHLORIDE 104 mEq/L (97-110); CREATININE 0.6 mg/dL (0.7-1.3); GLOMERULAR FILTRATION RATE > 60; GLUCOSE 131 mg/dL (70-100); POTASSIUM 4.4 mEq/L (3.5-5.2); SODIUM 143 mEq/L (134-144)
[2016-04-28 12:50] LABS: APTT 26.7 SEC (23.0-38.0); INR 1.02 (0.83-1.16); PROTIME(PATIENT) 13.3 SEC (12.0-15.0)
[2016-04-28 13:01] LABS: TROPONIN I 0.012 ng/mL (0-0.034)
--- NOTE | 2016-04-28 13:49 | DX ---
Portable AP Upright Chest April 28, 2016 at 12:52 p.m. Clinical History: 55-year-old male with ongoing chest pain. Comparison Study: Chest radiography, dated April 13, 2016. Findings: Again noted are median sternotomy wires and mediastinal surgical clips, consistent with a p rior CABG. The cardiac size is normal. There is some tortuosity of the aorta. There is diffuse peribr onchial thickening with areas of linear scarring in the lateral left midlung, unchanged from before. There is some pleural calcification associated with the left hemidiaphragm, and there is trace blunti ng of the left costophrenic angle, likely reflecting some pleural scarring. Since the previous study, there has been resolution of a previously noted anterior right upper lobe pneumonia. There is no pne umothorax. Impression: 1. Sequela of prior CABG. 2. 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 3. Diffuse peribronchial thickening which is nonspecific and could be related to prior chronic tobacc o use, although a superimposed viral interstitial pneumonitis cannot be excluded.
[2016-04-28] MEDS ORDERED: ONDANSETRON DISINTEGRATING 4 MG TAB PO PRN (14:34)
[2016-04-28] MEDS ORDERED: NITROGLYCERIN 0.4 MG BTL SL PRN (14:34)
[2016-04-28] MEDS ORDERED: KETOROLAC 30 MG/1 ML SDV IVP ONE (14:39)
--- NOTE | 2016-04-28 15:06 | GHP ---
[f rep st] HISTORY AND PHYSICAL DATE OF ADMISSION: 04/28/2016 CHIEF COMPLAINT: Chest pain. HPI: This is a 55-year-old male with known coronary artery disease who underwent 3-vessel CABG in 02 04, as well as PCI and bare metal stent placement in March [address] Leonard, who presents t o the [facility] today with chest pain. At 11:30 a.m. this morning, the patient was sitting playing a video game on his telephone when he dev eloped severe 9/10 left-sided chest pain. The pain was described as a pressure like a horse was sitt ing on his chest and also sharp pain that radiated down his arm. This pain was very similar to the s ymptoms he experienced when he had his last heart attack in March. Patient was given nitroglycerin, which did not help. Currently he denies any arm pain, but continues to have mild to moderate chest discomfort. His chest discomfort is associated with some diaphoresis and nausea. His pain is better with sitting forward and is worse with lying flat. He says he is co mpliant with his aspirin and Plavix. PAST MEDICAL HISTORY: Coronary artery disease as described in the HPI, hypertension, tobacco abuse. PAST SURGICAL HISTORY: 1. Tonsillectomy. 2. Three-vessel CABG in 2011. HOME MEDICATIONS: Reviewed, refer to [employer] for details. ALLERGIES: No known drug allergies. SOCIAL HISTORY: [facility] is and [facility]. He is a long-time smoker a nd has cut down to 8 cigarettes per day. He drinks alcohol. He denies any illicit drug use. FAMILY HISTORY: Significant for coronary artery disease in his grandparents. REVIEW OF SYSTEMS: Comprehensive 10-point review of systems was done and is negative, except for as mentioned in the HPI. The patient reports significant weight loss over the past year. He says his a ppetite has been very poor and he always feels full. PHYSICAL EXAM: VITAL SIGNS: Blood pressure 98/60, pulse 66, respiratory rate 16, O2 sat 98% on 2 L, temperature afebrile. GENERAL: No acute distress. HEAD: Normocephalic, atraumatic. EYES: PERRL A. Sclerae anicteric. MOUTH: Moist mucous membranes. NECK: Supple. No lymphadenopathy. CARDIOV ASCULAR: S1, S2. No JVD. No lower extremity edema. PULMONARY: Lungs are clear. No wheezes, rale s, or rhonchi. ABDOMEN: Soft, nontender, nondistended. No guarding or rebound tenderness. Normoac tive bowel sounds. EXTREMITIES: No clubbing or cyanosis. NEURO: Cranial nerves 2-12 grossly intac t. No focal motor or sensory deficits. SKIN: Clear. No rashes. DIAGNOSTICS: WBC is 10.39, hemoglobin 15.3, hematocrit 45.3, platelets 225. Sodium 143, potassium 4. 4, chloride 104, CO2 was 24, BUN 12, creatinine 0.6, glucose 131. Troponin was negative. BNP was 60 9. Chest x-ray shows an area of pleural parenchymal scarring and left hemothorax similar to a study done in March 2016. There is also some left hemidiaphragmatic calcification with diffuse peribronc hial thickening. EKG, which I visualized and personally interpreted, shows sinus rhythm, rate 64 beats per minute, wit h some small nonpathologic Q waves in 2, 3, and aVF. His EKG does show some possible ST elevation in V2 and V3 with ST depression in V4 and V5 that was not present on the EKG done on April 14, 2016. ASSESSMENT AND PLAN: This is a 55-year-old male with known coronary artery disease, who underwent ba re metal stenting on 04/13/2016 presenting with: 1. Chest pain concerning for acute coronary syndrome versus pericarditis. Plan: Patient will be pl aced on observation. Will cycle troponins. Will obtain a STAT echocardiogram. Will also consult Ca rdiology given his EKG changes. We will also trial NSAIDs and obtain inflammatory markers with next blood draw. 2. Reported early satiety and weight loss. Plan: Recommend outpatient workup with his primary care providers at [facility]. /[id number]/MODL
[2016-04-28 15:58] LABS: SEDIMENTATION RATE 14 MM/HR (0-20)
[2016-04-28] MEDS: NICOTINE 7 MG/24 HR PATCH TD SCH (20:03)
[2016-04-29] MEDS: NICOTINE 7 MG/24 HR PATCH TD SCH (08:36)
--- NOTE | 2016-04-29 08:55 | CPEKG ---
Heart Rate: 66 RR Interval: 909 P-R Interval: 128 QRSD Interval: 106 QT Interval: 448 QTC Interval: 470 P [place]: 42 QRS [place]: 45 T Wave [place]: 104 EKG Severity - ABNORMAL ECG - EKG Impression: SINUS RHYTHM EKG Impression: INFERIOR INFARCT, OLD EKG Impression: LATERAL LEADS ARE ALSO INVOLVED Electronically Signed By: Arnaldo Rizvi 30-Apr-2016 17:23:32
--- NOTE | 2016-04-29 09:17 | ECHO ---
[id number] [id number] + + [address] : : [place] [address] : : [phone] + Adult Echocardiographic Report + ------+ :Name: RUBINA GHOSH Trellreshma Date: 04/29/2016 08:01 AM : : Hospital Admission Number: [id number] Locatio n: 144: :: 1960 Gender: Male Height: 75 in : :Age: 55 yrs Race: WH Weight: 218 lb : :Reason For Study: Eval for wall motion abnormalities : : BSA: 2.3 meters 2 : + ------+ MMode/2D Measurements & Calculations LVIDd: 5.7 cm EDV(Teich): Ao root diam: LVLd ap4: 9.5 cm 160.5 ml 3.5 cm EDV(MOD-sp4): LA dimension: 136.0 ml 5.3 cm LVLs ap4: 8.4 cm ESV(MOD-sp4): 53.0 ml EF(MOD-sp4): 61.0 % SV(MOD-sp4): 83.0 ml Normal Measurement Values: + + :LVIDd (3.5-5.7cm) IVSd (0.6-1.1cm) LVPWd (0.6-1.1cm) Aortic Root (2.0-3.7cm)Left Atrium (1.5-4.0cm): :LV Vol(d) (76-115ml) LV Vol(s) (29-48ml) Ejec Fraction (50-65%)PV Tomas (0.6- 1.2m/s) TV Tomas (0.4-1.0m/s) : :MV E Tomas (0.8-1.0m/s)MV A Tomas (0.3-1.0m/s)LVOT Tomas (0.7-1.2m/s) Asc Ao Tomas ( 0.9-1.8m/s) : + + Doppler Measurements & Calculations MV E max tomas: 85.9 cm/sec Ao mean P.9 mmHg MV A max tomas: 61.7 cm/sec Ao V2 mean: 107.8 cm/sec MV E/A: 1.4 Ao V2 VTI: 31.9 cm Left Ventricle The left ventricle is mildly dilated. There is normal left ventricular wall thickness. There is Doppler evidence for diastolic dysfunction. EF estimate is 55-60%. LV inferior/apical septal santos are akinetic as noted on previous study of 04/14/16. Right Ventricle The right ventricle is normal in size and function. Atria The left atrium is mildly dilated. Right atrial size is normal. The interatrial septum is intact with no evidence for an atrial septal defect. Mitral Valve The mitral valve is normal in structure and function. There is no evidence of mitral valve prolapse. There is no mitral valve stenosis. There is mild to moderate mitral regurgitation. Tricuspid Valve Normal tricuspid valve. Aortic Valve The aortic valve opens well. There is no aortic stenosis. There is no aortic insufficiency. Pulmonic Valve The pulmonic valve is not well visualized. There is no pulmonic valvular regurgitation. Great Vessels The aortic root is normal size. Pericardium/Pleural There is no pericardial effusion. Conclusion A complete two-dimensional transthoracic echocardiogram was performed (2D, M-mode, Doppler and color flow Doppler). The left ventricle is mildly dilated. There is Doppler evidence for diastolic dysfunction. EF estimate is 55-60%. LV inferior/apical septal santos are akinetic as noted on previous study of 04/14/16. The left atrium is mildly dilated. There is mild to moderate mitral regurgitation. There is no pericardial effusion. Final Reading Physician: Sylvain Hudson signed on 04/29/2016 09:15 AM Ordering Physician: Brigido Hayes Performed By: Yamila Youngblood RDCS
[2016-04-29] MEDS ORDERED: ISOSORBIDE MONONITRATE 30 MG TAB.SR PO SCH (10:30)
[2016-04-29] MEDS ORDERED: ASPIRIN EC 81 MG TAB PO SCH (10:30)
--- NOTE | 2016-04-29 11:29 | GCON ---
[f rep st] CONSULTATION CARDIOLOGY CONSULTATION DATE OF CONSULTATION: 04/29/2016 REASON FOR CONSULTATION: We were asked by Dr. Hayes of the Hospital Medicine Service to evaluate the patient for his chest pain. HISTORY OF PRESENT ILLNESS: The patient is a 55-year-old male with known coronary artery disease status post CABG in 2011. He reports this was done in [place]. He presented on 04/13/2016 with severe substernal chest discomfort and was found to have an elevated troponin up to 6. At that time, he was taken to the cardiac catheterization laboratory and found to have thrombotic occlusion of a 2nd obtuse marginal branch which was treated with PCI with a bare metal stent at that time. His other coronary vasculature showed patent DUMONT to LAD, patent vein graft to distal posterolateral branch, with an EF of 40% and inferoapical akinesis. His peak troponin was 29. A followup echo showed normalization of EF to 65-70% with a persistent inferoapical akinetic wall motion abnormality. Other past medical history includes hypertension, ongoing tobacco abuse, and dyslipidemia. He presented to the emergency department with chest discomfort that started at 11:30 on 04/28/2016. He described severe 9/10 chest discomfort radiating into his left arm. This has been somewhat positional. He also notes associated shortness of breath that has been a long-standing issue, given his history of smoking. He denies any PND orthopnea or peripheral edema. Through the course of this hospitalization, he is found to have a negative EKG and negative enzymes. Echo is stable with an inferoapical wall motion abnormality and EF of 65-70%. REVIEW OF SYSTEMS: As per HPI. A complete 10-point review of systems was obtained and is negative except for what is dictated. PAST SURGICAL HISTORY: 1. Four-vessel CABG in 2011. 2. Tonsillectomy. PAST MEDICAL HISTORY: 1. Longstanding COPD. 2. CAD. 3. Dyslipidemia. 4. Hypertension. FAMILY HISTORY: Negative for premature coronary artery disease. SOCIAL HISTORY: Patient is homeless and resides at the retirement. He smokes cigarettes daily. No alcohol is reported. PHYSICAL EXAM: VITAL SIGNS: BP of 141/77, heart rate 77, respirations 20, O2 saturation of 98% on room air, temperature of 97.2 degrees Fahrenheit. GENERAL : He is a pleasant male. HEENT: Eyes are ABNER. NECK: Supple with no carotid bruits auscultated. HEART: Regular rate and rhythm with no rubs, gallops, or murmurs. LUNGS: Clear to auscultation bilaterally. ABDOMEN: Soft , nontender, normoactive bowel sounds. SKIN: Warm and dry without edema present. PSYCH: Normal mood and affect for given situation. NEURO: No there are no focal deficits detected. LABORATORY DATA: Troponins have been 0.012, then 0.018, and then less than 0.012. BMP with sodium 143, potassium 4.4, chloride 104, CO2 24, BUN 12, creatinine 0.6 , glucose of 131. CBC with WBC 10.39, hemoglobin 15.3, hematocrit 45.3, platelet count 225. A 12-lead ECG personally interpreted demonstrates sinus rhythm with inferior Q- waves, one PVC, diffuse ST-T wave abnormalities. On 04/29/2016: EKG demonstrates sinus rhythm with inferior Q-waves and ST-T wave abnormalities diffusely. On 04/28/2016: Echo demonstrates a mildly dilated left ventricle with EF of 55- 60% and LV inferoapical and septal santos akinetic, unchanged from previous study , mild to moderate MR and no pericardial effusion. 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 IMPRESSION AND PLAN: The patient is a 55-year-old male with known severe coronary artery disease. 1. Coronary artery disease with recent non-ST elevation myocardial infarction. He has negative troponins and EKGs have not shown any evidence of an acute coronary syndrome at this point. He is medically managed with metoprolol and lisinopril, Plavix and atorvastatin. Will add aspirin, as this does not appear on his medication list. Additionally, he will be started on antianginal therapy with isosorbide mononitrate. He will be followed up in clinic. If he has persistent chest pains, we would consider repeat angiography versus stress testing. 2. Chest pain syndrome. He has negative troponins and at this point, again, we will just pursue medical therapy. 3. Tobacco abuse. He is counseled on cessation. He is refer to [facility]. A phone number was given. 4. Hypertension. Blood pressure is mildly elevated this morning, but otherwise has been well controlled. 5. Dyslipidemia. His last LDL was measured on 04/13/2016 and was 95. We will continue to follow this in an outpatient setting. 6. Concern for malignancy. The patient was counseled on this and we are awaiting further recommendations from the Hospitalist service regarding further workup. /[id number]/MODL MTDD
[2016-04-29 12:10] VITALS: BP 138/81; PULSE 68; RESP 18; TEMP 97; O2SAT 96
--- NOTE | 2016-04-29 12:33 | GDS ---
[f rep st] DISCHARGE SUMMARY KNOWN ACUTE DIAGNOSES ON THIS ADMISSION: 1. Chest pain, probably noncardiac in origin, no evidence of cardiac ischemia by normal troponins. 2. Chest pain syndrome. 3. Tobacco abuse. 4. Hypertension. 5. Dyslipidemia. 6. Abnormal chest x-ray, possibly representing asbestos exposure with possibility of malignancy, Pul monary referral suggested. CONSULTATIONS: Cardiology. PROCEDURES: None. HOSPITAL COURSE: A 55-year-old male, who is status post a CABG in 2011 and underwent a bare metal st ent placement to the second obtuse marginal branch at this facility in April 2016. He presented wi th chest pain. He was found to have a normal troponin without elevation. BNP was slightly high at 6 09. Echocardiogram showed hypokinesis in the inferoapical septal wall, which was present on a previo us study with an EF of 55-60% and evidence of diastolic dysfunction. The echo was not changed from h is previous study. Because he most recently had an NFTEMI, a nuclear scan would not be an effective diagnostic procedure. Cardiology consult felt that with the normal troponins and unchanged echocardi ogram and the resolution of the gentleman's pain that he could be followed as an outpatient and medic ally managed. His nitrates were thus increased to long-acting nitrates along with short-acting nitra krista. Aspirin was added to his antiplatelet therapy. Blood pressure was well controlled during the h ospitalization. Regarding the chest x-ray abnormalities, which may be consistent with asbestosis, this should be foll owed as an outpatient with a referral to Pulmonology. The gentleman has agreed to the referral. DISCHARGE MEDICATIONS: ASA 81 mg a day, Imdur 30 mg daily, Lipitor 20 mg daily, baclofen 20 mg q.i. d., Plavix 75 mg daily, gabapentin 600 mg q.i.d., [place] 10/325 mg tablets 1 q.i.d. p.r.n. pain, miranda nopril 10 mg daily, Toprol-XL 25 mg daily, nicotine patch 21 mg daily, nitroglycerin 0.4 mg sublingu al for acute chest pain. PLAN: Kristinman will see Dr. Leonard in 2 weeks for reassessment of his chest pain syndrome and as to whether any further cardiac stratification should be done. He has also been referred to Dr. Rl Sanchez for Pulmonology and the evaluation of his abnormal chest x-ray. This referral can occur with in the next month. This discharge required 40 minutes greater than 50% to college and career counselor and coordinate care. /[id number]/MODL
== END 2016-04-29 12:51 | disposition home or self-care (01) ==
LOC: EDUNIT# → F1N 14:00
PROVIDERS: ADMIT Family Medicine; ATTEND Internal Medicine Pulmonary Disease
DX: R07.89 Other chest pain (principal); I25.10 Atherosclerotic heart disease of native coronary artery without angina pectoris; J44.9 Chronic obstructive pulmonary disease, unspecified; I10 Essential (primary) hypertension; E78.5 Hyperlipidemia, unspecified; F17.210 Nicotine dependence, cigarettes, uncomplicated; I25.2 Old myocardial infarction; Z95.1 Presence of aortocoronary bypass graft; Z95.5 Presence of coronary angioplasty implant and graft
CPT/HCPCS: 71010; 93005; 93306; 96374; 99285; G0378; J2405

== ENCOUNTER 2016-07-05 17:01 | Emergency (ER) | payer OTHER, MEDICAID ==
[2016-07-05 17:10] VITALS: TEMP 98.4
--- NOTE | 2016-07-05 17:12 | CPEKG ---
Heart Rate: 67 RR Interval: 896 P-R Interval: 144 QRSD Interval: 100 QT Interval: 476 QTC Interval: 503 P [place]: 57 QRS [place]: 26 T Wave [place]: 95 EKG Severity - ABNORMAL ECG - EKG Impression: SINUS RHYTHM EKG Impression: VENTRICULAR PREMATURE COMPLEX EKG Impression: INFERIOR INFARCT, OLD EKG Impression: LATERAL LEADS ARE ALSO INVOLVED EKG Impression: PROLONGED QT INTERVAL Electronically Signed By: Madelyn Umanzor 05-Jul-2016 22:38:41
--- NOTE | 2016-07-05 17:18 | EDPHY ---
H & P Smoking Status: Current every day smoker Time Seen by Provider: 07/05/16 17:13 HPI/ROS: CHIEF COMPLAINT: Altered mental status HISTORY OF PRESENT ILLNESS: 55-year-old male presents to the emergency department with altered mental status. The patient was brought into the emergency department by ambulance and is acting altered. He admits to using marijuana. He denies any other substance abuse or alcohol. He denies any reported trauma. He denies headache. Denies chest pain or difficulty breathing. Denies abdominal pain. Denies neck or back pain. No reported fall. REVIEW OF SYSTEMS: Constitutional: No fever, no chills. Eyes: No double or blurry vision. ENT: No sore throat. Respiratory: No cough, no shortness of breath. Cardiac: No chest pain. Gastrointestinal: No abdominal pain, vomiting or diarrhea. Genitourinary: No dysuria. Musculoskeletal: No neck or back pain. Skin: No rashes. Neurological: No headache. (Purvi Bowman) Past Medical/Surgical History: Hypertension, myocardial infarction, CABG with stents, tonsillectomy (Purvi Bowman) Social History: Homeless (Purvi Bowman) Physical Exam: General Appearance: Alert, no distress. No physical signs of trauma to his head. Eyes: Pupils equal and round. Extraocular motions are all intact. ENT: Mouth: Mucous membranes dry, poor dentition Respiratory: No wheezing, rhonchi, or rales, lungs are clear to auscultation. Cardiovascular: Regular rate and rhythm. Gastrointestinal: Abdomen is soft and nontender, no masses, no rebound or guarding, bowel sounds normal. Neurological: Uncooperative, cannot determine. Skin: Warm and dry, no rashes. Musculoskeletal: Nontender to palpate along the cervical, thoracic or lumbar spine. Neck is supple. Extremities: Full range of motion and no peripheral edema. Psychiatric: No agitation (Purvi Bowman) Constitutional: Initial Vital Signs Temperature (C) 36.9 C 07/05/16 17:08 Heart Rate 56 L 07/05/16 17:08 Respiratory Rate 16 07/05/16 17:08 Blood Pressure 148/98 H 07/05/16 17:08 O2 Sat (%) 96 07/05/16 17:08 O2 Delivery Mode Room Air O2 (L/minute) 2 Allergies/Adverse Reactions: No Known Allergies Allergy (Verified 07/05/16 17:08) Home Medications: Medication Instructions Recorded Baclofen [Baclofen 20 mg (*)] 20 mg PO QID 04/13/16 Atorvastatin Calcium [Lipitor 20 20 mg PO DAILY #30 tab 04/14/16 mg (*)] Clopidogrel Bisulfate [Plavix (*)] 75 mg PO DAILY #30 tab 04/14/16 Lisinopril [Zestril 10 mg (*)] 10 mg PO DAILY #90 tab 04/14/16 Metoprolol Succinate Xr [Toprol Xl 25 mg PO DAILY #90 tab 04/14/16 25 mg (*)] Nicotine [Nicoderm Cq 21 mg (*)] 21 mg TD DAILY #7 patch 04/14/16 Nitroglycerin [Nitrostat 0.4 mg 0.4 mg SL ONCE PRN #30 btl 04/14/16 (*)] Aspirin EC [Aspirin EC 81 mg (*)] 81 mg PO DAILY #100 tab 04/29/16 Gabapentin [Neurontin 300 MG (*)] 600 mg PO QID 04/29/16 HYDROcodone/APAP 10/325 [[place] 1 tab PO QID PRN 04/29/16 10/325 (*)] Isosorbide Mononitrate [Imdur 30 30 mg PO DAILY 30 Days 04/29/16 mg (*)] Medical Decision Making ED Course/Re-evaluation: 55-year-old male presents with altered mental status. Alcohol was negative. His urine tox is only positive for marijuana. He was observed for over 3 hours in the emergency department and had no complaints upon discharge. I do not appreciate any signs of trauma to his head. I do not think imaging studies are necessary of his brain. The case was discussed with Dr. Madelyn Umanzor, secondary supervising physician, who did not directly evaluate the patient but agrees with treatment and plan. ( Purvi Bowman) Differential Diagnosis: Altered mental status including but not limited to hypoglycemia, infectious process, electrolyte abnormality, head injury and intoxicants. (Purvi Bowman) Other Provider: The patient wasevaluatedand managed by themidlevel provider. Idiscussed the patient's presentation and course with thephysicianassistantor nurse practitionerand agree with theevaluation. My co-signature indicates that I have reviewed this chart and I agree with the findings and plan of care as documented. I am the secondary supervisingphysician. (Madelyn Umanzor) - Data Points Laboratory Results: Laboratory Results 07/05/16 17:03 07/05/16 17:03 Departure - Departure Disposition: Home, Routine, Self-Care Clinical Impression: Altered mental status Qualifiers: Altered mental status type: unspecified Qualified Code(s): R41.82 - Altered mental status, unspecified Condition: Good Instructions: Cannabis Abuse (ED), Altered Mental Status (ED) Additional Instructions: Return if you feel worse in any way. Referrals: [facility],. [Clinic] - 1-2 days without fail
[2016-07-05 17:44] LABS: ANION GAP 14 mEq/L (8-16); CALCIUM 10.5 mg/dL (8.5-10.4); CARBON DIOXIDE 27 mEq/l (22-31); CHLORIDE 105 mEq/L (97-110); CREATININE 0.9 mg/dL (0.7-1.3); ETHANOL SERUM < 10 mg/dL (0-10); GLOMERULAR FILTRATION RATE > 60; GLUCOSE 97 mg/dL (70-100); POTASSIUM 4.3 mEq/L (3.5-5.2); SODIUM 146 mEq/L (134-144)
[2016-07-05 17:45] LABS: % IMMATURE GRANULYOCYTES 0.6 % (0.0-1.1); ABSOLUTE IMMATURE GRANULOCYTES 0.07 10^3/uL (0.00-0.10); ADD DIFF? NO; ADD MORPH? NO; ADD SCAN? YES; FRAGMENT RBC FLAG 20 (0-99); HEMATOCRIT 48.5 % (40.0-51.0); HEMOGLOBIN 16.1 g/dL (13.7-17.5); LEFT SHIFT FLG 10 (0-99); LIPEMIA HEMOLYSIS FLAG 80 (0-99); MEAN CELL HEMOGLOBIN CONCENTR. 33.2 g/dL (32.4-36.7); MEAN CELL VOLUME 87.4 fL (81.5-99.8); PLATELET CLUMPS FLAG 20 (0-99); PLATELET COUNT 227 10^3/uL (150-400); RED BLOOD CELL COUNT 5.55 10^6/uL (4.40-6.38); RED CELL DISTRIBUTION WIDTH 15.6 % (11.5-15.2)
[2016-07-05 17:47] LABS: ATYPICAL LYMPHOCYTE FLAG 190 (0-99)
[2016-07-05 18:03] LABS: SCAN POSITIVE
[2016-07-05 18:07] LABS: PLATELET ESTIMATE ADEQUATE (ADEQ)
[2016-07-05 20:11] VITALS: BP 138/78; PULSE 70; RESP 14; O2SAT 94
== END 2016-07-05 20:19 | disposition home or self-care (01) ==
LOC: EDUNIT#
DX: R41.82 Altered mental status, unspecified (principal); I10 Essential (primary) hypertension; I25.2 Old myocardial infarction; Z95.5 Presence of coronary angioplasty implant and graft; Z79.82 Long term (current) use of aspirin
CPT/HCPCS: 80305; G0480

== ENCOUNTER 2016-07-27 10:41 | Inpatient (IN) | payer OTHER, MEDICAID ==
--- NOTE | 2016-07-27 10:46 | EDPHY ---
H & P HPI/ROS: CHIEF COMPLAINT: Chest pain, vomiting. HISTORY OF PRESENT ILLNESS: The patient is a 55-year-old male with a history of hypertension, CABGx3, cardiac stent, and multiple MIs presenting with chest pain and vomiting. He reports it feels like a horse is sitting on his chest. The discomfort radiates down his right arm. He denies shortness of breath, abdominal pain, diarrhea, fever. He last vomited an hour ago. His this morning and he has been under a lot of stress. He admits to IV heroin use yesterday. REVIEW OF SYSTEMS: A ten point review of systems was performed and is negative with the exception of the items mentioned in the HPI. Source: Patient, Police Exam Limitations: No limitations - Medical/Surgical History Hx Asthma: No Hx Chronic Respiratory Disease: Yes Hx Diabetes: No Hx Cardiac Disease: Yes Hx Renal Disease: No Hx Cirrhosis: No Hx Alcoholism: No Hx HIV/AIDS: No Hx Splenectomy or Spleen Trauma: No Other PMH: 1. HTN. 2. chronic back pain. 3. [place] x 2. 4. COPD. 5. CABG X 3. 6. STENT X 1. 7. tonsillectomy - Social History Smoking Status: Current every day smoker Alcohol Use: Occasionally Drug Use: Heroin Additional Social History: 1. Smokes half a pack of cigarettes per day. 2. Drinks alcohol on occasion. 3. IV heroin use. 4. Homeless - Physical Exam Exam: General Appearance: Alert. Vital signs reviewed. Blood pressure 149/88, heart rate 54. Eyes: Pupils equal and round, mild bilateral conjunctival injection, no discharge. Anicteric. ENT, Mouth: Mucous membranes are moist, no oropharyngeal erythema or edema. Neck: No lymphadenopathy, supple. Respiratory: Lungs are clear to auscultation; no wheezes, rales, or rhonchi. Cardiovascular: Bradycardic, no murmur, rub, or gallop. Gastrointestinal: Abdomen is soft, no masses or organomegaly, bowel sounds normal. Mild RUQ tenderness without guarding. Skin: Warm and dry, no rashes on exposed skin, normal color. Back: Nontender to palpation over the thoracolumbar spine. No CVAT. Extremities: No lower extremity edema, no calf tenderness or swelling. Track kaur to left forearm and elbow. Neurological: Alert and oriented. Moving all four extremities easily and equally. Psychiatric: Normal affect. Cooperative. No agitation. Constitutional: Initial Vital Signs Temperature (C) 36.0 C 07/27/16 10:42 Heart Rate 54 L 07/27/16 10:42 Respiratory Rate 16 07/27/16 10:42 Blood Pressure 149/88 H 07/27/16 10:42 O2 Sat (%) 96 07/27/16 10:42 O2 Delivery Mode Room Air Allergies/Adverse Reactions: No Known Allergies Allergy (Verified 07/05/16 17:08) Home Medications: Medication Instructions Recorded Baclofen [Baclofen 20 mg (*)] 20 mg PO QID 04/13/16 Atorvastatin Calcium [Lipitor 20 20 mg PO DAILY #30 tab 04/14/16 mg (*)] Clopidogrel Bisulfate [Plavix (*)] 75 mg PO DAILY #30 tab 04/14/16 Lisinopril [Zestril 10 mg (*)] 10 mg PO DAILY #90 tab 04/14/16 Metoprolol Succinate Xr [Toprol Xl 25 mg PO DAILY #90 tab 04/14/16 25 mg (*)] Nicotine [Nicoderm Cq 21 mg (*)] 21 mg TD DAILY #7 patch 04/14/16 Nitroglycerin [Nitrostat 0.4 mg 0.4 mg SL ONCE PRN #30 btl 04/14/16 (*)] Aspirin EC [Aspirin EC 81 mg (*)] 81 mg PO DAILY #100 tab 04/29/16 Gabapentin [Neurontin 300 MG (*)] 600 mg PO TID 04/29/16 HYDROcodone/APAP 10/325 [[place] 1 tab PO QID PRN 04/29/16 10/325 (*)] Isosorbide Mononitrate [Imdur 30 30 mg PO DAILY 30 Days 04/29/16 mg (*)] Medical Decision Making - Diagnostics EKG Interpretation: The 12 lead EKG was interpreted by myself. See hard copy and/or "tracemaster" electronic copy for interpretation. Sinus bradycardia rate 45, nonspecific interventricular conduction delay, old inferior infarct. Imaging: Imaging Impressions Chest X-Ray 07/27/16 11:12 Impression: Stable chest. Prior CABG.. ED Course/Re-evaluation: 55-year-old male with an extensive cardiac history presents with chest pain and vomiting that began this morning. He reports that it feels that a horse is sitting on his chest. He last vomited an hour ago. He denies shortness of breath , abdominal pain, diarrhea, fever. He reports drinking alcohol "whenever" he can , but not in excess, and did use IV heroin yesterday. An IV was established and labs ordered. Chest x-ray, EKG obtained. I independently reviewed the patient's chest x-ray on the PACS system. Please see Imaging section for radiologist report. I reviewed the patient's laboratory studies. Troponin elevated at 0.1. 1155: Reassessed patient. Discussed results of workup so far, including the elevated troponin. I strongly recommended admission to him for further cardiac workup and ruleout, but he is refusing to be admitted. I discussed at length the risks of this with him including heart attack and . 1205: Consulted with [employer]. They report that the patient was witnessed making suicidal comments this morning after his . He took some number of unknown pills, stating to a third constitution party that he wanted to "go out too ". He has been placed on an M1 Hold for suicidal ideation. He states tells me that he does not want to kill himself but also states "I would not tell you if I did want to". He does tell me that he does not care whether or not he dies and that he has no reason to live now. 1224: Consulted with hospitalist. He will be admitted under an M1 hold for medical stabilization. Once his cardiac evaluation is completed he can undergo mental health evaluation. Differential Diagnosis: Chest pain including but not limited to myocardial ischemia, pulmonary embolus, chest wall pain, pleural inflammation and pulmonary infectious causes. His presentation is complicated by the fact that he has suffered the loss of his this morning, her was unexpected. Earlier in the day was making suicidal comments. These might be just the result of grief. Once he is medically stable this can be sorted out. - Data Points Laboratory Results: Laboratory Results 07/27/16 10:55 07/27/16 10:55 07/27/16 07/27/16 10:55 10:55 WBC 9.62 10^3/uL H 10^3/uL (3.80-9.50) RBC 4.84 10^6/uL 10^6/uL (4.40-6.38) Hgb 14.4 g/dL g/dL (13.7-17.5) Hct 44.0 % % (40.0-51.0) MCV 90.9 fL fL (81.5-99.8) MCH 29.8 pg pg (27.9-34.1) MCHC 32.7 g/dL g/dL (32.4-36.7) RDW 14.7 % % (11.5-15.2) Plt Count 151 10^3/uL 10^3/uL (150-400) MPV 11.3 fL fL (8.7-11.7) Neut % (Auto) 80.8 % H % (39.3-74.2) Lymph % (Auto) 10.3 % L % (15.0-45.0) [place] % (Auto) 6.4 % % (4.5-13.0) Eos % (Auto) 1.1 % % (0.6-7.6) Baso % (Auto) 0.7 % % (0.3-1.7) Nucleat RBC Rel Count 0.0 % % (0.0-0.2) Absolute Neuts (auto) 7.76 10^3/uL H 10^3/uL (1.70-6.50) Absolute Lymphs (auto) 0.99 10^3/uL L 10^3/uL (1.00-3.00) Absolute Monos (auto) 0.62 10^3/uL 10^3/uL (0.30-0.80) Absolute Eos (auto) 0.11 10^3/uL 10^3/uL (0.03-0.40) Absolute Basos (auto) 0.07 10^3/uL 10^3/uL (0.02-0.10) Absolute Nucleated RBC 0.00 10^3/uL 10^3/uL (0-0.01) Immature Gran % 0.7 % % (0.0-1.1) Immature Gran # 0.07 10^3/uL 10^3/uL (0.00-0.10) Sodium 141 mEq/L mEq/L (134-144) Potassium 3.6 mEq/L mEq/L (3.5-5.2) Chloride 105 mEq/L mEq/L (97-110) Carbon Dioxide 27 mEq/l mEq/l (22-31) Anion Gap 9 mEq/L mEq/L (8-16) BUN 10 mg/dL mg/dL (7-23) Creatinine 0.5 mg/dL L mg/dL (0.7-1.3) Estimated GFR > 60 Glucose 115 mg/dL H mg/dL (70-100) Calcium 9.0 mg/dL mg/dL (8.5-10.4) Total Bilirubin 0.8 mg/dL mg/dL (0.1-1.4) Conjugated Bilirubin 0.5 mg/dL mg/dL (0.0-0.5) Unconjugated Bilirubin 0.3 mg/dL mg/dL (0.0-1.1) AST 23 IU/L IU/L (17-59) ALT 28 IU/L IU/L (21-72) Alkaline Phosphatase 96 IU/L IU/L (38-126) Troponin I 0.100 ng/mL H ng/mL (0-0.034) Total Protein 6.9 g/dL g/dL (6.3-8.2) Albumin 4.0 g/dL g/dL (3.5-5.0) Lipase 12.0 IU/L L IU/L (23-300) Ethyl Alcohol < 10 mg/dL mg/dL (0-10) Medications Given: Discontinued Medications Aspirin (Aspirin) 324 mg PO EDNOW ONE Stop: 07/27/16 11:13 Last Admin: 07/27/16 11:25 Dose: 324 mg Gabapentin (Neurontin) 600 mg PO EDNOW ONE Stop: 07/27/16 12:45 Last Admin: 07/27/16 12:45 Dose: 600 mg Nitroglycerin (Nitrostat) 0.4 mg SL ONCE ONE Stop: 07/27/16 13:32 Last Admin: 07/27/16 13:44 Dose: 0.4 mg Departure - Departure Disposition: [facility] Clinical Impression: Elevated troponin, Suicide ideation Chest pain Qualifiers: Chest pain type: unspecified Qualified Code(s): R07.9 - Chest pain, unspecified Condition: Fair Report Scribed for: Yeimy Saini Report Scribed by: Chip Chun Date of Report: 07/27/16 Time of Report: 10:48 Physician Review and Approval Statement: 07/27/16 10:46 Portions of this note were transcribed by the medical dir. I, Dr. Yeimy Saini, personally performed the history, physical exam, and medical decision- making; and confirmed the accuracy of the information in the transcribed note.
--- NOTE | 2016-07-27 10:51 | CPEKG ---
Heart Rate: 45 RR Interval: 1333 P-R Interval: 152 QRSD Interval: 112 QT Interval: 512 QTC Interval: 443 P [place]: 51 QRS [place]: 22 T Wave [place]: 88 EKG Severity - ABNORMAL ECG - EKG Impression: SINUS BRADYCARDIA EKG Impression: NONSPECIFIC INTRAVENTRICULAR CONDUCTION DELAY EKG Impression: INFERIOR INFARCT, OLD Electronically Signed By: Yeimy Saini 27-Jul-2016 15:15:08
[2016-07-27] MEDS ORDERED: ASPIRIN 81 MG CHEWABLE TAB PO ONE (11:12)
[2016-07-27 11:25] LABS: % IMMATURE GRANULYOCYTES 0.7 % (0.0-1.1); ABSOLUTE IMMATURE GRANULOCYTES 0.07 10^3/uL (0.00-0.10); ADD DIFF? NO; ADD MORPH? NO; ADD SCAN? NO; ATYPICAL LYMPHOCYTE FLAG 10 (0-99); FRAGMENT RBC FLAG 0 (0-99); HEMOGLOBIN 14.4 g/dL (13.7-17.5); LEFT SHIFT FLG 10 (0-99); LIPEMIA HEMOLYSIS FLAG 80 (0-99); MEAN CELL HEMOGLOBIN 29.8 pg (27.9-34.1); MEAN CELL HEMOGLOBIN CONCENTR. 32.7 g/dL (32.4-36.7); MEAN CELL VOLUME 90.9 fL (81.5-99.8); MEAN PLATELET VOLUME 11.3 fL (8.7-11.7); PLATELET CLUMPS FLAG 20 (0-99); PLATELET COUNT 151 10^3/uL (150-400); RED BLOOD CELL COUNT 4.84 10^6/uL (4.40-6.38); RED CELL DISTRIBUTION WIDTH 14.7 % (11.5-15.2)
[2016-07-27 11:34] LABS: ALANINE AMINOTRANSFERASE 28 IU/L (21-72); ALKALINE PHOSPHATASE 96 IU/L (38-126); ANION GAP 9 mEq/L (8-16); ASPARTATE AMINOTRANSFERASE 23 IU/L (17-59); BILIRUBIN,TOTAL 0.8 mg/dL (0.1-1.4); BILIRUBIN-CONJUGATED 0.5 mg/dL (0.0-0.5); BILIRUBIN-UNCONJUGATED 0.3 mg/dL (0.0-1.1); CARBON DIOXIDE 27 mEq/l (22-31); CHLORIDE 105 mEq/L (97-110); CREATININE 0.5 mg/dL (0.7-1.3); ETHANOL SERUM < 10 mg/dL (0-10); GLOMERULAR FILTRATION RATE > 60; GLUCOSE 115 mg/dL (70-100); POTASSIUM 3.6 mEq/L (3.5-5.2); SODIUM 141 mEq/L (134-144); TOTAL PROTEIN 6.9 g/dL (6.3-8.2)
[2016-07-27] MEDS ORDERED: GABAPENTIN 100 MG CAP PO ONE (12:44)
[2016-07-27] MEDS ORDERED: NITROGLYCERIN 0.4 MG BTL SL PRN ×2 (12:45→15:07)
[2016-07-27] MEDS ORDERED: NITROGLYCERIN 0.4 MG BTL SL ONE (13:31)
[2016-07-27] MEDS ORDERED: ONDANSETRON 4 MG/2 ML VIAL IVP ONE (14:37)
[2016-07-27] MEDS ORDERED: ACETAMINOPHEN 325 MG TAB PO PRN (15:05)
[2016-07-27] MEDS ORDERED: HYDROCODONE/APAP 5/325 TAB PO PRN (15:05)
[2016-07-27] MEDS ORDERED: ONDANSETRON 4 MG/2 ML VIAL IVP PRN (15:05)
[2016-07-27] MEDS ORDERED: ALBUTEROL 3 ML DEYVIAL IH PRN (15:05)
[2016-07-27] MEDS ORDERED: TEMAZEPAM 15 MG CAP PO PRN (15:05)
[2016-07-27] MEDS ORDERED: ONDANSETRON DISINTEGRATING 4 MG TAB PO PRN (15:05)
--- NOTE | 2016-07-27 16:01 | GHP ---
[f rep st] HISTORY AND PHYSICAL DATE OF ADMISSION: 07/27/2016 CHIEF COMPLAINT: Chest pain. HISTORY OF PRESENT ILLNESS: A 55-year-old male with a history of extensive coronary artery disease. He is status post CABG and a recent [place] in March. He was homeless. Apparently, he and his were doing heroin last night, and he woke up this morning and his was . When he discovere d that, he immediately had chest pain. He continues to have some chest pain at this time. No short ness of breath. No fevers or chills. He is noncompliant with any of his medications. I think the only medication he is taking is gabapentin. Apparently at the scene, someone else was at the scene, and he began taking a bunch of pills and say ing that he wanted to end his life. Currently, he denies this, and denies suicidal ideation. He is , however, on an M1 hold. He does have chronic back pain. REVIEW OF SYSTEMS: A 10-point review of systems was obtained. Patient is complaining of weight los s, and believes he may have cancer. He has lost about 30 pounds in the last several months. Otherwise, was negative. PAST MEDICAL HISTORY: 1. Coronary artery disease, status post CABG with stenting to the obtuse marginal recently in [place] of last year. His angiogram then showed patent mammary artery to the LAD and vein graft to the distal posterolateral branch, but did show inferior apical akinesis. 2. Chronic back pain. 3. COPD. SOCIAL HISTORY: Heavy smoker. Homeless, from [place]. FAMILY HISTORY: Negative coronary artery disease. PHYSICAL EXAM: VITAL SIGNS: Afebrile, blood pressure is 130/89 heart rate is 50 oxygen saturation 97% on room air. GENERAL: The patient is well developed, in no apparent distress. HEENT: [place] kiley sclerae. Extraocular movements intact. Moist mucous membranes. NECK: Supple. No thyromegaly . LUNGS: Good effort. Decreased breath sounds. No wheezing or rhonchi. CARDIOVASCULAR: Regular rate and rhythm. No murmurs, gallops. ABDOMEN: Positive bowel sounds. Soft, nontender, nondiste nded. No hepatosplenomegaly. EXTREMITIES: No clubbing, cyanosis, or edema. SKIN: Without rash. Dry, intact. NEURO: Alert and oriented x3. Moving all 4 extremities equally. PSYCH: Tearful. LABS: White count slightly elevated at 9. Chemistry is essentially normal, other than a troponin o f 0.1. EKG, personally reviewed and interpreted, shows Q-waves inferiorly, slight ST-segment change s anteriorly. Chest x-ray: No pneumonia. ASSESSMENT: This is a 55-year-old male with a history of coronary artery disease, presenting with c hest pain, mild troponin elevation, after emotional trauma. PLAN: 1. Rule out unstable angina/non-Q-wave [place]. Will cycle troponins currently. If rises significantly , we will get Cardiology involved. 2. Possible suicidal ideation. The patient is currently on M1 hold, although he denies suicidal id eation. He is a full code. We will have psych evaluate in the morning. 3. Weight loss. Patient is a smoker. Will get CT scan of his chest. 4. Chronic back pain. Continue pain medicines. 5. Admission. Patient will be admitted under full admission status. Case discussed with ER physic richard. Old records reviewed and summarized in the HPI. /[id number]/MODL
[2016-07-27] MEDS: GABAPENTIN 300 MG CAP PO SCH ×2 (17:12→22:11)
[2016-07-27] MEDS: BACLOFEN 20 MG TAB PO SCH ×2 (17:13→20:22)
[2016-07-27] MEDS: HYDROCODONE/APAP 10/325 TAB PO PRN (17:22)
[2016-07-27] MEDS: NICOTINE 14 MG/24 HR PATCH TD SCH (17:49)
[2016-07-27] MEDS: LORazepam 0.5 MG TAB PO PRN (20:21)
[2016-07-28] MEDS: LORazepam 0.5 MG TAB PO PRN ×3 (03:56→21:00)
[2016-07-28] MEDS: HYDROCODONE/APAP 10/325 TAB PO PRN ×2 (03:56→16:36)
[2016-07-28 04:53] LABS: % IMMATURE GRANULYOCYTES 0.2 % (0.0-1.1); ABSOLUTE IMMATURE GRANULOCYTES 0.02 10^3/uL (0.00-0.10); ADD DIFF? NO; ADD MORPH? NO; ADD SCAN? NO; ATYPICAL LYMPHOCYTE FLAG 20 (0-99); FRAGMENT RBC FLAG 0 (0-99); HEMATOCRIT 41.6 % (40.0-51.0); HEMOGLOBIN 13.7 g/dL (13.7-17.5); LEFT SHIFT FLG 0 (0-99); LIPEMIA HEMOLYSIS FLAG 80 (0-99); MEAN CELL HEMOGLOBIN 29.5 pg (27.9-34.1); MEAN CELL HEMOGLOBIN CONCENTR. 32.9 g/dL (32.4-36.7); MEAN CELL VOLUME 89.7 fL (81.5-99.8); MEAN PLATELET VOLUME 11.5 fL (8.7-11.7); PLATELET CLUMPS FLAG 20 (0-99); PLATELET COUNT 161 10^3/uL (150-400); RED BLOOD CELL COUNT 4.64 10^6/uL (4.40-6.38); RED CELL DISTRIBUTION WIDTH 14.8 % (11.5-15.2)
--- NOTE | 2016-07-28 05:06 | CPEKG ---
Heart Rate: 70 RR Interval: 857 P-R Interval: 132 QRSD Interval: 104 QT Interval: 428 QTC Interval: 462 P [place]: 30 QRS [place]: 27 T Wave [place]: 93 EKG Severity - ABNORMAL ECG - EKG Impression: SINUS RHYTHM EKG Impression: INFERIOR INFARCT, OLD EKG Impression: LATERAL LEADS ARE ALSO INVOLVED Electronically Signed By: Tito Berg 28-Jul-2016 07:03:58
[2016-07-28 05:07] LABS: ALANINE AMINOTRANSFERASE 25 IU/L (21-72); ALBUMIN 3.7 g/dL (3.5-5.0); ALKALINE PHOSPHATASE 84 IU/L (38-126); ANION GAP 8 mEq/L (8-16); ASPARTATE AMINOTRANSFERASE 22 IU/L (17-59); BILIRUBIN,TOTAL 0.7 mg/dL (0.1-1.4); CALCIUM 9.1 mg/dL (8.5-10.4); CARBON DIOXIDE 26 mEq/l (22-31); CHLORIDE 105 mEq/L (97-110); CREATININE 0.5 mg/dL (0.7-1.3); GLOMERULAR FILTRATION RATE > 60; GLUCOSE 98 mg/dL (70-100); MAGNESIUM 2.1 mg/dL (1.6-2.3); POTASSIUM 4.3 mEq/L (3.5-5.2); SODIUM 139 mEq/L (134-144); TOTAL PROTEIN 6.6 g/dL (6.3-8.2)
[2016-07-28 05:18] LABS: TROPONIN I 0.065 ng/mL (0-0.034)
[2016-07-28] MEDS: METOPROLOL SUCCINATE XR 25 MG TAB PO SCH (09:36)
[2016-07-28] MEDS: ATORVASTATIN CALCIUM 20 MG TAB PO SCH (09:36)
[2016-07-28] MEDS: BACLOFEN 20 MG TAB PO SCH ×4 (09:36→21:02)
[2016-07-28] MEDS: GABAPENTIN 300 MG CAP PO SCH ×3 (09:36→21:02)
[2016-07-28] MEDS: ISOSORBIDE MONONITRATE 30 MG TAB.SR PO SCH (09:36)
[2016-07-28] MEDS: NICOTINE 14 MG/24 HR PATCH TD SCH (09:37)
[2016-07-28] MEDS: ASPIRIN EC 81 MG TAB PO SCH (09:37)
[2016-07-28] MEDS: LISINOPRIL 10 MG TAB PO SCH (09:37)
[2016-07-28] MEDS: CLOPIDOGREL BISULFATE 75 MG TAB PO SCH (09:37)
--- NOTE | 2016-07-28 10:18 | GCON ---
[f rep st] CONSULTATION CHIEF OF SERVICE CONSULTATION REASON FOR ADMISSION: Suicidal ideation. Chest pain. HISTORY OF PRESENT ILLNESS: The patient is a 55-year-old white male with an extensive past medical history including drug abuse, coronary artery disease with history of CABG, recent stenting, chronic back pain, chronic obstructive pulmonary disease, tobacco abuse. He is also homeless. He and his were doing heroin the night before. When he awakened in the morning, his had . He be sandra having chest pain subsequently thereafter and sought medical attention. He expressed suicidal i deation in the emergency room, and currently is on an M1 hold. Currently, the patient is sedated an d somewhat somnolent. All history is gleaned from the medical record. PAST MEDICAL HISTORY: Significant for coronary artery disease, chronic back pain, chronic obstructi ve pulmonary disease, heroin, and tobacco abuse. PAST SURGICAL HISTORY: He had a coronary bypass graft, recent cardiac stenting. ALLERGIES: No known allergies to medications. SOCIAL HISTORY: Heavy tobacco use. Unknown alcohol use. He does abuse heroin. He is homeless and is from [place]. PHYSICAL EXAM: VITAL SIGNS: Blood pressure is 149/67, pulse 56, respirations 12, temperature 36.8. Oxygen saturation 95% on room air. GENERAL: He is a thin 55-year-old white male who is resting c omfortably. HEENT: Eyes are ABNER, EOMI. Throat shows no erythema or tonsillar hypertrophy. NECK: Supple. There is no cervical adenopathy. HEART: Regular rate and rhythm with a 2/6 systolic mur mur at the left sternal border without radiation. LUNGS: Diminished breath sounds. Prolongation o f expiratory phase, but there is no wheeze. ABDOMEN: Soft, nontender. Bowel sounds are present. EXTREMITIES: No clubbing, cyanosis, or edema. LABORATORIES: White count is 8, hemoglobin 13, hematocrit 41, platelet count is 161. Sodium 139, p otassium 4.3, chloride 105, CO2 is 26, BUN 14, creatinine 0.5, glucose is 98. Troponins are positiv e x2. Urine tox screen is non negative for opiates, amphetamines, and marijuana. CT scan of the est shows emphysema, pleural thickening, bronchitis. IMPRESSION: 1. Heroin abuse. 2. Chronic obstructive pulmonary disease. 3. Coronary artery disease. 4. Suicidal ideation. 5. Chest pain. RECOMMENDATIONS: 1. The patient has been admitted to intensive care unit. 2. Agree with M1 hold. 3. Adequate pain control. 4. DVT and PE prophylaxis. 5. Stress ulcer prophylaxis. 6. Cardiac workup. Anticipate cardiology evaluation today. /[id number]/MODL
--- NOTE | 2016-07-28 11:43 | GCON ---
pt had caffiene today..will do lexiscan tomorrow..pt agrees [f rep st] CONSULTATION CARDIAC CONSULTATION DATE OF CONSULTATION: 07/28/2016 REASON FOR CONSULTATION: Chest pain, known coronary artery disease, indeterminate troponins. HPI: This is a 55-year-old gentleman, who is homeless, who has a history of coronary artery disease. He is status post coronary artery bypass grafting in [place]. In March of 2016 he had chest pain, abnormal troponins. Cardiac cath showed patent DUMONT to the LAD, patent SVG to an RCA, with an occluded obtuse marginal, with subsequent stenting. The chest pain he was having at that time, was not relieved, however, by the stenting procedure. He is homeless and is unable to afford or take his medicines. Apparently, last night , he with his and there was a possible or presumed overdose, and she was found . He started having chest ,pains was brought to the emergency room. His troponins were indeterminate, and on 4 testings had been flat without increase. On his prior non-Q-wave, he had market elevation in his troponins. His EKGs show normal sinus rhythm, with an old inferior myocardial infarction, unchanging. He has been stable overnight. At this point, he is pain free. In speaking to him, as an outpatient he has intermittent chest pains, usually with exertion or stress, but once again, he is not taking any medicines at this time. At this point, he denies any acute GI or blood loss. He does have a cough, and he has been complaining of some weight loss. PAST HISTORY: Coronary artery disease as noted above. He does have, in reviewing the films, a [id number] depressed ejection fraction, with an old inferior myocardial infarction. He is a smoker, and has chronic back and chest pain. SOCIAL HISTORY: Homeless. FAMILY HISTORY: Apparently, no early cardiovascular disease. EXAM: VITAL SIGNS: Blood pressure is 149/57, he is heart rate is in the 70s sinus. GENERAL: He is a talkative male who, at this point, is in no acute distress. Just finished eating lunch. HEENT: Moist oropharynx. BACK AND LUNGS: Without palpable tenderness, although he did have some mild tenderness in his sternal scar area, which was well-healed. He had no wheezing or rhonchi. CARDIOVASCULAR: Regular rate and rhythm. I could not hear murmur, gallop, rub. ABDOMEN: Soft, nontender. MUSCULOSKELETAL: No edema. ASSESSMENT: Chest pain, somewhat atypical. He has very low levels and flat troponins. On his last non-Q-wave infarction, he had marked rise in his troponins. His EKGs suggest an old inferior marker infarction, which was known. He had patent left internal mammary artery to his left anterior descending, and a saphenous vein graft to posterior descending artery. I suspect he is not having significant involvement in these grafts, as the EKG does not suggest any acute ST-elevation, which I would expect. His grafting from March clearly could be affected, especially with his medical noncompliance. I suspect it was a small vessel and a small area of myocardium. At this point, I would recommend a nuclear stress test to look for any ischemic burden. He should have evidence of an inferior myocardial infarction. Once again, medical noncompliance will continue to be an issue. He appears to be, from a cardiac standpoint, hemodynamically stable. He does not need any intervention at this time. I reiterated the benefits of ongoing medical management, which he has been placed on. Once again, compliance as an outpatient may be a continuing issue. For now, he appears hemodynamically stable. Will assess with a nuclear stress test for amount of ischemia, but I suspect it would be a small area, most likely treated with medicine, especially since his history of medical noncompliance after his recent stenting. This was all discussed with him. His questions were answered. /[id number]/MODL MTDD
--- NOTE | 2016-07-28 13:54 | HOSPPROG ---
Hospitalist Progress Note Assessment/Plan: * ongoing chest pain with history of coronary artery disease and flat troponins * cardiology following * stress test tomorrow * if negative then will be medically cleared * suicidal ideation * continue hold * recent heroin use with of * weight loss * CT chest is negative for malignancy * smoker Subjective: is continuing to have chest pain Objective: Vital Signs Temp Pulse Resp BP Pulse Ox 36.8 C 66 15 117/64 94 07/28/16 04:00 07/28/16 12:00 07/28/16 12:00 07/28/16 12:00 07/28/16 12:00 Laboratory Results 07/28/16 04:30 07/28/16 04:30 07/27/16 07/28/16 07/29/16 05:59 05:59 05:59 Intake Total 1640 Output Total 350 Balance 1290 EKG personally reviewed interpreted shows no ischemia discussed with Cardiology - Physical Exam Constitutional: no apparent distress, appears nourished, not in pain Eyes: anicteric sclera, EOMI Ears, Nose, Mouth, Throat: moist mucous membranes, hearing normal, ears appear normal Cardiovascular: regular rate and rhythym, no murmur, rub, or gallop Respiratory: no respiratory distress, no rales or rhonchi, clear to auscultation Gastrointestinal: normoactive bowel sounds, soft, non-tender abdomen, no palpable masses Skin: warm Neurologic: AAOx3 Psychiatric: interacting appropriately, not anxious, not encephalopathic, thought process linear ICD10 Worksheet Patient Problems: Problems Problem Status Onset Chest pain Acute Elevated troponin Acute Suicide ideation Acute Altered mental status Acute Chest pain Acute Elevated troponin Acute Non-Q wave myocardial infarction Acute
[2016-07-29] MEDS: HYDROCODONE/APAP 10/325 TAB PO PRN ×2 (03:18→07:54)
[2016-07-29] MEDS: NICOTINE 14 MG/24 HR PATCH TD SCH ×2 (03:19→07:56)
[2016-07-29] MEDS: BACLOFEN 20 MG TAB PO SCH ×3 (06:36→15:32)
[2016-07-29] MEDS: LORazepam 0.5 MG TAB PO PRN (07:55)
[2016-07-29] MEDS: ASPIRIN EC 81 MG TAB PO SCH (07:57)
[2016-07-29] MEDS: ISOSORBIDE MONONITRATE 30 MG TAB.SR PO SCH (07:57)
[2016-07-29] MEDS: CLOPIDOGREL BISULFATE 75 MG TAB PO SCH (07:57)
[2016-07-29] MEDS: ATORVASTATIN CALCIUM 20 MG TAB PO SCH (07:57)
[2016-07-29] MEDS: METOPROLOL SUCCINATE XR 25 MG TAB PO SCH ×2 (08:03→09:00)
[2016-07-29] MEDS: GABAPENTIN 300 MG CAP PO SCH ×2 (08:03→15:32)
[2016-07-29] MEDS: LISINOPRIL 10 MG TAB PO SCH (08:04)
[2016-07-29 08:16] VITALS: TEMP 98.4; O2SAT 98
[2016-07-29] MEDS ORDERED: HALOPERIDOL LACT 5 MG/ML INJ IVP PRN (08:46)
[2016-07-29] MEDS ORDERED: HALOPERIDOL LACT 5 MG/ML INJ ONE (08:49)
--- NOTE | 2016-07-29 10:55 | CPR ---
[f rep st] NONINVASIVE CARDIAC PROCEDURE REPORT PROCEDURE PERFORMED: Lexiscan injection of Lexiscan MPI study. INDICATION FOR PROCEDURE: History of coronary artery disease, chest pain, abnormal electrocardiogra m. PRE: After obtaining informed consent, ensuring patient's n.p.o. status of caffeine for greater marcin n 12 hours, placed on electrocardiogram, initial EKG showed sinus bradycardia, with Q-waves noted in inferior leads, nonspecific T-waves in lateral. Patient is reporting no chest pain, shortness of b reath, or symptoms suggesting of ischemia. Initial blood pressure 142/70, saturating 95% on room ai r. INJECTION: Patient was given Lexiscan slowly IV push followed by nuclear isotope. The patient's el ectrocardiogram remained unchanged, post-injection, except for occasional premature ventricular cont raction noted. Blood pressure remained stable throughout the procedure. Patient reporting no adver se symptoms from injection. Remaining chest pressure free. After 5 minutes, final electrocardiogra m done, again no significant change. Final blood pressure 140/70, saturation 94%. The patient is i n Nuclear Medicine, will finish post-stress imaging at this time. Patient denies any symptoms sugge sting ischemia. IMPRESSION: A 55-year-old male with known history of coronary artery disease undergoing Lexiscan in [facility], no abnormal electrocardiogram as stated above, no symptoms post injection, no significant E KG changes. Stress MPI imaging studies pending. /[id number]/MODL
[2016-07-29 12:49] VITALS: BP 124/67; PULSE 76; RESP 20
--- NOTE | 2016-07-29 15:30 | ECHO ---
[id number] + + [address] : : [place] [address] : : [phone] + + Adult Echocardiographic Report + ------+ :Name: RUBINA GHOSH Date: 07/29/2016 01:22 PM : : Hospital Admission Number: [id number] Locatio n: 250: :: 1960 Gender: Male Height: 75 in : :Age: 55 yrs Race: WH Weight: 178 lb : :Reason For Study: Eval LV Fx : : BSA: 2.1 meters 2 : :History: Abnormal Nuclear : + ------+ MMode/2D Measurements \T\ Calculations IVSd: 1.2 cm LVIDd: 5.4 cm FS: 35.0 % Ao root diam: 3.1 cm LVPWd: 1.2 cm LVIDs: 3.5 cm EDV(Teich): 139.3 ml ACS: 1.9 cm ESV(Teich): 50.5 ml EF(Teich): 63.8 % Normal Measurement Values: + + :LVIDd (3.5-5.7cm) IVSd (0.6-1.1cm) LVPWd (0.6-1.1cm) Aortic Root (2.0-3.7cm)Left Atrium (1.5-4.0cm): :LV Vol(d) (76-115ml) LV Vol(s) (29-48ml) Ejec Fraction (50-65%)PV Tomas (0.6- 1.2m/s) TV Tomas (0.4-1.0m/s) : :MV E Tomas (0.8-1.0m/s)MV A Tomas (0.3-1.0m/s)LVOT Tomas (0.7-1.2m/s) Asc Ao Tomas ( 0.9-1.8m/s) : + + Doppler Measurements \T\ Calculations MV E max tomas: 74.0 cm/sec Ao V2 max: 126.2 cm/sec LV V1 max: 70.6 cm/sec MV A max tomas: 55.8 cm/sec Ao max P.4 mmHg LV V1 max P.0 mmHg MV E/A: 1.3 Left Ventricle The left ventricle is normal in size. There is mild concentric left ventricular hypertrophy. Ejection Fraction = 60%. There is Doppler evidence for diastolic dysfunction. There ibasal inferior and apical septal akinesis. Right Ventricle The right ventricle is normal size. Atria The left atrium is mildly dilated. Right atrial size is normal. Mitral Valve The mitral valve is normal. There is no evidence of mitral valve prolapse. There is no mitral valve stenosis. There is mild mitral regurgitation. Tricuspid Valve Normal tricuspid valve. Aortic Valve The aortic valve is normal in structure and function. The aortic valve opens well. There is no aortic stenosis. There is no aortic insufficiency. Pulmonic Valve The pulmonic valve is normal in structure and function. There is no pulmonic valvular regurgitation. Great Vessels The aortic root is normal size. Pericardium/Pleural There is no pericardial effusion. Conclusion A complete two-dimensional transthoracic echocardiogram was performed (2D, M-mode, Doppler and color flow Doppler). Normal LV size and systolic function. Ejection Fraction = 60%. There is mild concentric left ventricular hypertrophy. There is basal inferior and apical septal akinesis There is Doppler evidence for diastolic dysfunction. The left atrium is mildly dilated. Valvular anatomy is normal. There is mild mitral regurgitation. There is no pericardial effusion. Unchanged from 04/29/16. Final Reading Physician: Sylvain Levin signed on 07/29/2016 03:29 PM Ordering Physician: Luis Felipe Hills Performed By: Jd Anderson, CS
--- NOTE | 2016-07-29 16:22 | PDCARPN ---
Cardiology Progress Note Chief Complaint: Patient reports he wants to go home Assessment/Plan: Assessment: 55 year old male admitted for chest pain and possible suicide idealization, currently on M1 hold. Significant past history that includes CAD with previous CABG in [place]. Current smoker, chronic back pain, and COPD. Noted to initial troponin of 0.100 on admission which has trended down, at 04:30 this morning was at 0.065. 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 LVEF was noted no 40% with inferior akinesis. Electrocardiogram done admission showed sinus bradycardia, Q -waves noted in inferior leads, nonspecific interventricular conduction delay. CT w/o contrast of the chest ,07/27/2016, showed borderline ascending dilation 4.0 cm. Patient did undergo MPI study today, large old infarction involving the apex and apical inferior santos of the myocardium, no definitive ischemia. Echocardiogram today showed Echocardiogram showed normal LV size and function, EF 60%, mild concentric LVH basal inferior and apical septal akinesis, Doppler evidence diastolic dysfunction LA mildly dilated, mild MR. When discussed with Dr. Zavaleta, he reports no significant change since April of 2016 echo. . Patient reports long history of noncompliance with medications. Plan: 1. Chest pain: Patient with known history of CAD, indeterminate troponins, MPI study negative for ischemia. Echo showed no change in LV systolic function , Patient has been resumed on cardiac medications, including beta-blockers and isosorbide.. ? Indeterminate troponin elevation as small vessel disease and noncompliance he medication. 2. CAD: Previous CABG and PCI of 2nd OM with BMS in March 2012, MPI study negative for ischemia, patient with known history of noncompliance. Patient has been resumed on aspirin therapy, clopidogrel, isosorbide, and metoprolol succinate. Have discussed with him the importance of staying compliant with his medications, in the outpatient setting. He has been encouraged to establish with primary care, follow-up in our office. 3. Cardiomyopathy, ischemic: Echocardiogram showed EF low side of normal, patient has been restarted on beta-blockers and Tyron inhibitors. 4. Hyperlipidemia: Patient has been restarted on atorvastatin, should have a fasting lipid liver panel done in 6-8 weeks. Target LDL less than 70 5. Dilated ascending aorta: Patient started on beta blockers. Recommend re- evaluation in 6 months. 6. Tobacco cessation: Counseling done , patient reports that he not willing at this time to quit smoking. He has been referred to the [place] quit [facility]. Patient potentially discharged later this today, have scheduled him for a follow -up appointment in our office in the next 7-10 days. 07/29/16 16:19 Subjective: Patient reports occasional midsternal chest pressure, denies shortness of breath , orthopnea, PND, edema, lightheadedness, palpitations, near syncope or syncopal events. Reviewed/Discussed With: hospitalist (Dr Hills), other (Dr Zavaleta) Objective: Vital Signs (8 Hrs) Pulse Resp BP Pulse Ox 07/29/16 12:00 76 20 124/67 H 98 Intake/Output (24 Hrs) 07/28/16 07/29/16 07/30/16 05:59 05:59 05:59 Intake Total 1640 1500 Output Total 350 Balance 1290 1500 Intake: Oral (ml) 1640 1500 Output: Urine (ml) 350 Urinal 350 Other: Weight 80.739 kg Number of Voids 0 Toilet 1 3 Result Diagrams: 07/28/16 04:30 07/28/16 04:30 Cardiac Labs: Cardiac Lab Results (72 Hrs) 07/28/16 07/27/16 07/27/16 04:30 18:40 14:55 Troponin I 0.065 H 0.084 H 0.096 H - Physical Exam Constitutional: no apparent distress, other (Thin, older appearance thin actually age.) Ears, Nose, Mouth, Throat: moist mucous membranes Cardiovascular: regular rate and rhythm, no rubs, no gallops, systolic murmur (1 -2/6 systolic murmur noted along the left sternal border.), pulses symmetric bilat Peripheral Pulses: 2+: carotid (R), carotid (L), dorsalis-pedis (R), dorsalis- pedis (L) Respiratory: clear to auscultate bilat, no crackles, no wheezes, No reduced air movement Gastrointestinal: normoactive bowel sounds Skin: no rashes, warm, no edema Neurologic: AAOx3 Psychiatric: cooperative, interactive, following commands, anxious ICD10 Worksheet Patient Problems: Problems Problem Status Onset Altered mental status Acute Chest pain Acute Chest pain Acute Elevated troponin Acute Elevated troponin Acute Non-Q wave myocardial infarction Acute Suicide ideation Acute
== END 2016-07-29 16:15 | disposition home or self-care (01) | DRG 313 ==
LOC: EDUNIT# → EEVIPCON 12:43 → F2N 14:41
PROVIDERS: ADMIT Internal Medicine; ATTEND Internal Medicine
DX: R07.9 Chest pain, unspecified (principal); I10 Essential (primary) hypertension; F11.10 Opioid abuse, uncomplicated; J44.9 Chronic obstructive pulmonary disease, unspecified; E78.5 Hyperlipidemia, unspecified; I25.5 Ischemic cardiomyopathy; I25.2 Old myocardial infarction; Z59.0 Homelessness; Z95.1 Presence of aortocoronary bypass graft; Z72.0 Tobacco use; Z91.120 Patient's intentional underdosing of medication regimen due to financial hardship; Z95.5 Presence of coronary angioplasty implant and graft
CPT/HCPCS: 80305; A9500; G0480; J2405